=== PATIENT | male | born 1945 | race Caucasian/White ===

== ENCOUNTER 2016-11-06 11:56 | Inpatient (IN) | payer MEDICARE, OTHER ==
--- NOTE | 2016-11-06 12:23 | EDPRACDOC ---
- General Information Information Source: Patient - History of Present Illness Onset: one week HPI: LEFT LEG SWELLING, 2 WEEKS DURATION, WORSE YESTERDAY AND TODAY. HAS SAT IN RECLINER WITH LEG ELEVATED. STARTED WITH CRAMPS, (NOT UNUSUAL), SWELLING INITIALLY STARTED FROM KNEE DOWN, BUT NOW EXTENDS TO HIP. 2012 AORTIC VALVE (NON -METALLIC). TAKES PLAVIX AND 81 MG ASPIRIN. Mechanism: Denies: Blunt Trauma <Asaf Hammond - Last Filed: 11/06/16 16:34> <Meera Chavez - Last Filed: 11/06/16 18:45> - General Information Chief Complaint: Lower Leg Pain Stated Complaint: LT LEG SWOLLEN FROM TOE TO GROIN PALE Time Seen by Provider: 11/06/16 12:10 Home Medications: Home Medications Albuterol Sulfate [Proair Hfa] 1 - 2 puff INH Q4-6H PRN 11/06/16 Amitriptyline HCl 25 mg PO QHS PRN 11/06/16 Aspirin (Enteric Coated) [Ecotrin] 81 mg PO DAILY 11/06/16 Clopidogrel Bisulfate [Plavix] 75 mg PO DAILY 11/06/16 Fenofibrate 160 mg PO DAILY 11/06/16 Furosemide [Lasix] 20 mg PO DAILY 11/06/16 Insulin Regular, Human [Humulin R] 8 unit SQ .TID SLIDING SCALE 11/06/16 Insulin Regular, Human [Humulin R] 8 unit SQ 2000 PRN 11/06/16 Liraglutide [Victoza 0.6 mg/0.1 ml] 1.8 mg SQ .QPM 11/06/16 Losartan Potassium 50 mg PO DAILY 11/06/16 [place]-3/Dha/Epa/Fish Oil [Fish Oil 1,400 mg Softgel] 1 cap PO BID 11/06/16 Pravastatin [Pravachol] 80 mg PO QHS 11/06/16 Promethazine [Phenergan] 25 mg PO Q8H PRN 11/06/16 Super Beta Prostate 2 tab PO .QPM 11/06/16 Verapamil HCl [Verapamil ER] 120 mg PO DAILY 11/06/16 Allergies/Adverse Reactions: Allergies Allergy/AdvReac Type Severity Reaction Status Date / Time levofloxacin [From Levaquin] Allergy Nausea/Vomi Verified 11/06/16 12:01 ting ED Past Medical History - History Reviewed Yes Nurses notes reviewed and agree except as marked - Patient Medical History Cardiac History: Reports: Hypertension, Hypercholesterolemia Respiratory History: Reports: COPD Psychological History: Denies: Depression Surgical History: Reports: Appendectomy, Tonsillectomy/Adnoidectomy - Social Medical History Smoking Status: Heavy tobacco smoker (5 or more cigarettes/day or daily pipe/ cigar) <Asaf Hammond - Last Filed: 11/06/16 16:34> EDM Review of Systems - Review of Systems ROS Negative Except as Marked: Yes All systems reviewed and were negative except as marked Respiratory: Shortness of Breath (CHRONIC, NO CHANGE FROM PRIOR.) Cardiovascular: No Symptoms Reported Gastrointestinal: No Symptoms Reported Genitourinary: No Symptoms Reported <Asaf Hammond - Last Filed: 11/06/16 16:34> - Physical Exam Constitutional: Alert (Awake), No apparent distress Oriented to: Time, Person, Place Last recorded Vital Signs: Last Vital Signs Temp 97.8 F 11/06/16 12:01 Pulse 114 11/06/16 12:01 Resp 20 11/06/16 12:01 BP 134/61 11/06/16 12:01 Pulse Ox 98 11/06/16 12:01 Oxygen Pulse Oxygen Saturation 98 O2 Device Room Air Oxygen Flow Rate Fraction of Inspired Oxygen ( FIO2) - HEENT Head: Normal ( normocephalic) Eye Exam: Normal (PERRL, EOMI, Sclera white) Oropharynx: Membranes Dry, Other (ERYTHEMA SOFT PALATE) Nose: No Symptoms Reported (septum midline) Neck: Normal (FROM, trachea at midline) - Respiratory/Cardiovascular Respiratory: Normal - CTA (BBS clear to auscultation without adventitious sounds ) Cardiovascular: Normal (RRR without murmur, gallop or rub) - GI Auscultation: Normal (NABS) Palpation: Normal (Soft,No rebound or guarding, non distended) Tenderness: Non tender Perez's Sign: Negative - Musculoskeletal Back: Normal (Non-Tender) Extremities: Normal (Normal tone, Pulses 2+ No cyanosis or edema, FROM) - Integumentary Skin: Normal, Warm, Dry Lymphatics: Normal (no adenopathy) - Neurologic Memory Impaired: Normal Motor Function: Normal (Normal tone, Pulses 2+ No cyanosis or edema, FROM) Cranial Nerve: Normal (CN II-X11 intact sensation, strength 5/5) Cerebellar: Normal Mood Description: Normal Perception: Normal <Asaf aHmmond - Last Filed: 11/06/16 16:34> - Physical Exam Last recorded Vital Signs: Last Vital Signs Temp 97.8 F 11/06/16 12:01 Pulse 90 11/06/16 17:36 Resp 18 11/06/16 17:36 BP 131/59 L 11/06/16 17:36 Pulse Ox 96 11/06/16 17:36 Oxygen Pulse Oxygen Saturation 96 O2 Device Room Air Oxygen Flow Rate Fraction of Inspired Oxygen ( FIO2) <Meera Chavez Jolie - Last Filed: 11/06/16 18:45> ED Low Extremities Phys Exam - Other Exam Other Exam Findings: LEFT LEG PITTING EDEMA FROM FOOT TO THIGH. TTP LEFT ANTERIOR THIGH. <Asaf Hammond - Last Filed: 11/06/16 16:34> - Results 11/06/16 12:41 11/06/16 12:41 - EKG EKG #1 EKG Time: 12:48 -: Yes EKG interpreted by me Rate: bpm: 97 [place]: Normal Rhythm: NSR Block: None Hypertrophy: None ST: Normal Comments: NORMAL EKG <Asaf Hammond - Last Filed: 11/06/16 16:34> - Re-evaluation Re-evaluation 3 Re-evaluation Time: 18:43 LEFT LOWER EXTREMITY STILL WARM, WELL PERFUSED, DORSALIS PEDIS 2+. CAP REFILL IN ALL 5 TOES BRISK. SKIN IS WARM AND PINK NORMAL. NO EVIDENCE OF CERULEANS DOLOR OR ALBA. - Results 11/06/16 12:41 11/06/16 12:41 WBC 13.8 xk/uL (3.8-10.8) H 11/06/16 12:41 RBC 3.96 xM/uL (4.70-6.10) L 11/06/16 12:41 Hgb 10.2 g/dL (14.0-18.0) L 11/06/16 12:41 Hct 31.9 % (42-52) L 11/06/16 12:41 MCV 81 fL (80-94) 11/06/16 12:41 MCH 25.9 pg (27-32) L 11/06/16 12:41 MCHC 32.1 g/dl (33-36) L 11/06/16 12:41 RDW 16.2 % (11.5-14.5) H 11/06/16 12:41 Plt Count 192 xk/uL (130-400) 11/06/16 12:41 MPV 7.6 fL (7.4-10.4) 11/06/16 12:41 Neut % (Auto) 70.0 % (45-76) 11/06/16 12:41 Lymph % (Auto) 19.1 % (17-44) 11/06/16 12:41 [place] % (Auto) 6.1 % (3-10) 11/06/16 12:41 Eos % (Auto) 3.8 % (0-5) 11/06/16 12:41 Baso % (Auto) 1.0 % (0-2) 11/06/16 12:41 Absolute Neuts (auto) 9.66 xk/uL (1.7-8.2) H 11/06/16 12:41 Absolute Lymphs (auto) 2.62 xk/uL (0.65-4.75) 11/06/16 12:41 PT 13.8 SEC (9.2-11.2) H 11/06/16 12:41 INR 1.3 11/06/16 12:41 APTT 24.9 SEC (22-35) 11/06/16 12:41 Sodium 136 mEq/L (137-146) L 11/06/16 12:41 Potassium 4.2 mEq/L (3.5-5.1) 11/06/16 12:41 Chloride 102 mEq/L (98-107) 11/06/16 12:41 Carbon Dioxide 24 mMOL/L (22-33) 11/06/16 12:41 Anion Gap 14 mEq/L (8-16) 11/06/16 12:41 BUN 49 MG/DL (9-20) H 11/06/16 12:41 Creatinine 2.00 MG/DL (0.66-1.25) H 11/06/16 12:41 Estimated GFR (MDRD) 33 mL/min (>=60) L 11/06/16 12:41 Glucose 189 mg/dL (70-99) H 11/06/16 12:41 Calculated Osmolality 280 MOs/Kg (270-290) 11/06/16 12:41 Calcium 8.7 MG/DL (8.4-10.2) 11/06/16 12:41 Corrected Calcium 9.6 MG/DL (8.4-10.2) 11/06/16 12:41 Total Bilirubin 0.9 MG/DL (0.2-1.3) 11/06/16 12:41 AST 42 IU/L (17-59) 11/06/16 12:41 ALT 22 IU/L (21-72) 11/06/16 12:41 Alkaline Phosphatase 71 IU/L (50-160) 11/06/16 12:41 Troponin I 0.08 ng/mL (<.04) 11/06/16 12:41 Lqd-S-Dnoomwtcprt Pept Cancelled 11/06/16 12:41 Total Protein 7.1 G/DL (6.3-8.2) 11/06/16 12:41 Albumin 3.1 G/DL (3.5-5.0) L 11/06/16 12:41 Lab Results 11/06/16 11/06/16 11/06/16 12:41 12:41 12:41 WBC 13.8 H RBC 3.96 L Hgb 10.2 L Hct 31.9 L MCV 81 MCH 25.9 L MCHC 32.1 L RDW 16.2 H Plt Count 192 MPV 7.6 Neut % (Auto) 70.0 Lymph % (Auto) 19.1 [place] % (Auto) 6.1 Eos % (Auto) 3.8 Baso % (Auto) 1.0 Absolute Neuts (auto) 9.66 H Absolute Lymphs (auto) 2.62 PT 13.8 H INR 1.3 APTT 24.9 Sodium Potassium Chloride Carbon Dioxide Anion Gap BUN Creatinine Estimated GFR (MDRD) Glucose Calculated Osmolality Calcium Corrected Calcium Total Bilirubin AST ALT Alkaline Phosphatase Troponin I Wos-T-Apoaavkrufa Pept Cancelled Total Protein Albumin 11/06/16 12:41 WBC RBC Hgb Hct MCV MCH MCHC RDW Plt Count MPV Neut % (Auto) Lymph % (Auto) [place] % (Auto) Eos % (Auto) Baso % (Auto) Absolute Neuts (auto) Absolute Lymphs (auto) PT INR APTT Sodium 136 L Potassium 4.2 Chloride 102 Carbon Dioxide 24 Anion Gap 14 BUN 49 H Creatinine 2.00 H Estimated GFR (MDRD) 33 L Glucose 189 H Calculated Osmolality 280 Calcium 8.7 Corrected Calcium 9.6 Total Bilirubin 0.9 AST 42 ALT 22 Alkaline Phosphatase 71 Troponin I 0.08 Els-G-Iwldkmdfsil Pept Total Protein 7.1 Albumin 3.1 L - Additional Information WITH ELEVATED TROPONINS AND A VERY LARGE CLOT BURDEN IN THE LEFT LOWER EXTREMITY DVT,, A PULMONARY EMBOLISM CAN BE ASSUMED. HOWEVER WITH NORMAL VITAL SIGNS, NORMAL OXYGENATION, NO CHEST PAIN NO SHORTNESS OF BREATH, NORMAL ECHO THEN A LARGE CLOT BURDEN IN THE LUNG IS HIGHLY UNLIKELY. <Meera Chavez - Last Filed: 11/06/16 18:45> - Departure Yes I personally saw and evaluated the patient. Disposition: Home <Asaf Hammond - Last Filed: 11/06/16 16:34> - Departure Disposition: Admit IP To This Hospital Education/Counseling Given To: Patient, Family Member Education/Counseling Given Regarding: Diagnosis, Treatment, Prognosis Decision to Admit Time: 18:41 Decision to admit date: 11/06/16 Decision to admit: from ED - Physician Consulted Hospitalist Time Called: 18:00 Provider Called: Bear Del Castillo Time [employer] Returned Call: 18:03 (D/W VASC SURG IF AMENABLE TO THROMBOLYSISI.) Surgery Time Called: 18:20 Provider Called: Lg Kinney Time [employer] Returned Call: 18:41 (NOT A CANDIDATE FOR IV THROMBOLYTICS B/C RENAL INSUF: CONVENTIONAL TREATMENT ONLY) <Meera Chavez - Last Filed: 11/06/16 18:45> - Departure Condition: Stable Final Diagnosis: Left leg DVT Qualifiers: Affected thrombotic vein of extremity: femoral Chronicity: acute Qualified Code (s): I82.412 - Acute embolism and thrombosis of left femoral vein Pulmonary embolism Qualifiers: Pulmonary embolism type: other Chronicity: unspecified Acute cor pulmonale presence: without acute cor pulmonale Qualified Code(s): I26.99 - Other pulmonary embolism without acute cor pulmonale Referrals: Eugene Apodaca MD [Primary Care Provider] - One Week Prescriptions: No Action Super Beta Prostate 2 tab PO .QPM Losartan Potassium 50 mg PO DAILY Insulin Regular, Human [Humulin R] 8 unit SQ .TID SLIDING SCALE Aspirin (Enteric Coated) [Ecotrin] 81 mg PO DAILY [place]-3/Dha/Epa/Fish Oil [Fish Oil 1,400 mg Softgel] 1 cap PO BID Clopidogrel Bisulfate [Plavix] 75 mg PO DAILY Pravastatin [Pravachol] 80 mg PO QHS Furosemide [Lasix] 20 mg PO DAILY Verapamil HCl [Verapamil ER] 120 mg PO DAILY Liraglutide [Victoza 0.6 mg/0.1 ml] 1.8 mg SQ .QPM Fenofibrate 160 mg PO DAILY Albuterol Sulfate [Proair Hfa] 1 - 2 puff INH Q4-6H PRN PRN Reason: Shortness Of Breath Promethazine [Phenergan] 25 mg PO Q8H PRN PRN Reason: Nausea/Vomiting Amitriptyline HCl 25 mg PO QHS PRN PRN Reason: NEUROPATHY Insulin Regular, Human [Humulin R] 8 unit SQ 2000 PRN PRN Reason: BS>300
[2016-11-06 12:51] LABS: AUTOMATED EOSINOPHIL 3.8 % (0-5); AUTOMATED LYMPH 19.1 % (17-44); AUTOMATED MONOCYTE 6.1 % (3-10); MPV 7.6 fL (7.4-10.4)
[2016-11-06 13:02] LABS: BLOOD UREA NITROGEN 49 MG/DL (9-20); CALC CORRECTED 9.6 MG/DL (8.4-10.2); CALCIUM 8.7 MG/DL (8.4-10.2); CALCULATED OSMOLALITY 280 MOs/Kg (270-290); CHLORIDE 102 mEq/L (98-107); GLUCOSE 189 mg/dL (70-99); SODIUM LEVEL 136 mEq/L (137-146); TOTAL PROTEIN 7.1 G/DL (6.3-8.2)
[2016-11-06 13:05] LABS: PARTIAL THROMB. TIME 24.9 SEC (22-35); PT-INR 1.3
--- NOTE | 2016-11-06 13:33 | DIRPT ---
CLINICAL DATA: Leg swelling EXAM: PORTABLE CHEST 1 VIEW COMPARISON: 12/05/2012 FINDINGS: Previous median sternotomy and CABG procedure. Mile diffuse edema identified. Masslike opacity in the perihilar left midlung is identified and measures 8.5 cm. Right lung appears clear. IMPRESSION: 1. Perihilar masslike opacity in the left lung is identified. In the acute setting findings may represent pneumonia. If there are no signs or symptoms of infection then further evaluation with contrast enhanced CT of the chest would be advised to assess for underlying malignancy. Electronically Signed By: Susy Mckeon M.D. On: 11/06/2016 13:31
--- NOTE | 2016-11-06 16:12 | DIRPT ---
CLINICAL DATA: Left lower extremity edema for 2 weeks with associated pain. EXAM: LEFT LOWER EXTREMITY VENOUS DOPPLER ULTRASOUND TECHNIQUE: Hector-scale sonography with graded compression, as well as color Doppler and duplex ultrasound were performed to evaluate the lower extremity deep venous systems from the level of the common femoral vein and including the common femoral, femoral, profunda femoral, popliteal and calf veins including the posterior tibial, peroneal and gastrocnemius veins when visible. The superficial great saphenous vein was also interrogated. Spectral Doppler was utilized to evaluate flow at rest and with distal augmentation maneuvers in the common femoral, femoral and popliteal veins. COMPARISON: None. FINDINGS: Contralateral Common Femoral Vein: Respiratory phasicity is normal and symmetric with the symptomatic side. No evidence of thrombus. Normal compressibility. Common Femoral Vein: Occlusive thrombus present. Saphenofemoral Junction: There is flow in the GSV right up to the saphenofemoral junction. Profunda Femoral Vein: Occlusive thrombus present. Femoral Vein: Occlusive thrombus present. Popliteal Vein: Occlusive thrombus present. Calf Veins: Occlusive thrombus present. Superficial Great Saphenous Vein: No evidence of thrombus. Normal compressibility and flow on color Doppler imaging. Venous Reflux: None. Other Findings: No focal fluid collections. IMPRESSION: Extensive acute appearing left lower extremity DVT affecting all of the visualized deep veins with occlusive thrombus seen throughout. The great saphenous vein remains patent up to the level of the saphenofemoral junction. Electronically Signed By: Angus Guadalupe M.D. On: 11/06/2016 16:09
[2016-11-06] MEDS ORDERED: HEPARIN 5000 UNITS/ML VIAL IV ONE (16:34)
[2016-11-06] MEDS: HEPARIN 500 ML IV SCH (17:34)
--- NOTE | 2016-11-06 18:00 | CAPUECHO ---
INDICATION: SHORTNESS OF BREATH HEIGHT: 180.3 cm (5 ft 11.0 in) WEIGHT: 94.8 kg (209.0 lbs) BP: 122/58 BSA: 2.074772 m MEASUREMENTS 2D RVIDd: 2.9 cm IVSd: 1.5 cm LVIDd: 3.7 cm LVPWd: 1.5 cm LVIDs: 2.6 cm EF(Teich): 59.91 % LA Diam: 4.0 cm LAESV MOD A4C: 36.3 ml LAESV MOD A2C: 58.0 ml LAESV Index (A-L): 24.28 ml/m M-MODE Ao Diam: 3.6 cm DOPPLER MV E Jesus: 0.74 m/s MV A Jesus: 1.20 m/s MV PHT: 54.26 ms MVA By PHT: 4.05 cm LVOT Vmax: 0.88 m/s AV Vmax: 1.47 m/s TR Vmax: 0.83 m/s TR maxP mmHg RVSP: 12.73 mmHg FINDINGS ------- Procedure:2D images, m-mode, color and spectral Doppler were obtained and reviewed. ECG rhythm:Sinus rhythm. Study quality:This was a technically difficult study with suboptimal views. Left Ventricle:The left ventricular size is normal. There is mild concentric left ventricular hype rtrophy. Overall left ventricular systolic function is normal with, an EF between 55 - 60 %. The diastolic filling pattern indicates impaired relaxation. No regional wall motion abnormalities we re noted. Right Ventricle:The right ventricle is normal in size and function. Left Atrium:Left atrium is mildly dilated by volume. Right Atrium:The right atrium is mildly enlarged. Septum intact by color Doppler. Aortic Valve:The aortic valve was not well visualized. There is no evidence of aortic regurgitatio n. There is no evidence of aortic stenosis. Mitral Valve:Normal appearing mitral valve. No mitral regurgitation. Tricuspid Valve:The tricuspid valve appears structurally normal. Trace tricuspid regurgitation pre sent. Normal pulm artery pressure suggested. Pulmonic Valve:The pulmonic valve is normal. There is no pulmonic regurgitation present. Aorta:The aortic root and aortic arch appear normal. IVC:Normal inferior vena cava with normal inspiratory collapse. Pericardium:There is no pericardial effusion. CONCLUSIONS 1. mild concentric left ventricular hypertrophy with normal systolic function, EF 59%, no segmental abnormality. 2. mild biatrial dilatation 3. normal right ventricular size/function, trace TR , normal pulm artery pressure suggested 4. mild aortic sclerosis, no significant valve disease Electronically Signed By: Abran Felipe MD-- Electronically Signed On: 17:58:03
--- NOTE | 2016-11-06 18:43 | HISTPHYS ---
- Chief Complaint leg pain - History of Present Illness PRIMARY CARE PROVIDER: Dr. Apodaca HPI: The patient is a 71 yo man, smoker, with COPD (uses only ProAir qhs) who presents with leg pain and shortness of breath. His foot left started swelling about 2.5 weeks ago and eventually his lower leg then his thigh started swelling. The thigh swelling started about 2 days ago. The shortness of breath - - started 10 years ago, and has been somewhat worse lately. Onset: 2.5 weeks ago. Duration: intermittent. Location: left foot. Radiation: left lower leg then left thigh Character: swelling, pain. Alleviated by: Nothing. Exacerbated by: walking. Associated Symptoms: Shortness of breath. Chronic cough and wheezing. No chest pain or palpitations. Weight loss: approximately 20 lbs over the last year, but more than 40 lbs within the last 4 years; unintentional. Treatments: none at home except usual medications. ProAir takes only 1 time per day. Other History: CON: Uses CPAP at home but it does not fit well because he lost weight. - Medical History Cardiac History: Reports: Hypertension, Hypercholesterolemia, Valvular Heart Disease (Heart valve aorta [facility], [facility] Respiratory History: Reports: COPD (and CON, has CPAP but mask doesn't fit.) GI/ History: Reports: Renal Disease (CKD Starge III.) Musculoskeletal History: Reports: Arthritis Systemic History: Reports: Diabetes (Type 2, on insulin) Psychological History: Denies: Depression Other History: Colonoscopy: [place], 2005, No issues per patient. No EGD. CON: Uses CPAP at home but it does not fit well because he lost weight. - Surgical History Reports: Appendectomy, Tonsillectomy/Adnoidectomy, Other (Aortic valve replacement, hemorrhoids 1979, Abscess removed buttocks) - Medictions/Allergies Allergies levofloxacin [From Levaquin] Allergy (Verified 11/06/16 12:01) Nausea/Vomiting Current Medication List: Reviewed Home Medications Albuterol Sulfate [Proair Hfa] 1 - 2 puff INH Q4-6H PRN 11/06/16 Amitriptyline HCl 25 mg PO QHS PRN 11/06/16 Aspirin (Enteric Coated) [Ecotrin] 81 mg PO DAILY 11/06/16 Clopidogrel Bisulfate [Plavix] 75 mg PO DAILY 11/06/16 Fenofibrate 160 mg PO DAILY 11/06/16 Furosemide [Lasix] 20 mg PO DAILY 11/06/16 Insulin Regular, Human [Humulin R] 8 unit SQ .TID SLIDING SCALE 11/06/16 Insulin Regular, Human [Humulin R] 8 unit SQ 2000 PRN 11/06/16 Liraglutide [Victoza 0.6 mg/0.1 ml] 1.8 mg SQ .QPM 11/06/16 Losartan Potassium 50 mg PO DAILY 11/06/16 [place]-3/Dha/Epa/Fish Oil [Fish Oil 1,400 mg Softgel] 1 cap PO BID 11/06/16 Pravastatin [Pravachol] 80 mg PO QHS 11/06/16 Promethazine [Phenergan] 25 mg PO Q8H PRN 11/06/16 Super Beta Prostate 2 tab PO .QPM 11/06/16 Verapamil HCl [Verapamil ER] 120 mg PO DAILY 11/06/16 - Family History Reports: Diabetes (Brother), Cancer (Father: prostate.), Cardiac Disorders ( Mother, but lived to 89yo.), Other (Brother: glaucoma. DVT IN 1 LEG.) - Social History Lives: with Spouse Smoking Status: Heavy tobacco smoker (5 or more cigarettes/day or daily pipe/ cigar) (Currently 1-2 ppd. Previously 3ppd within 8 hrs, then more. Started age 11.) Social History: Denies: Alcohol Use, Substance Use Disorder - Review of Systems GENERAL: No Fever, chills, or diaphoresis. Positive for fatigue/malaise. Unintentional weight loss. HEENT: No ear pain or discharge. No nasal discharge or bleeding. No throat pain or swelling. No eye pain or eye redness. RESPIRATORY: Cough, wheezing, and shortness of breath. CARDIOVASCULAR: No chest pain or palpitations. GI: No abdominal pain, nausea, vomiting, diarrhea, constipation, or bloody stool. NEUROLOGICAL: No headache or focal weakness. INTEGUMENT: no rashes, itching, or lesions. LYMPHATIC SYSTEM: no lymph node swelling or pain. MUSCULOSKELETAL: Except as per HPI, no new pain or joint swelling. GENITOURINARY: No dysuria or hematuria. ENDOCRINE: No polyuria or polydipsia. HEME: No chronic anemia, bleeding, or easy bruising. - Physical Exam Vital Signs: Initial Vitals Temperature 97.8 F 11/06/16 12:01 Pulse Rate 114 11/06/16 12:01 Respiratory Rate 20 11/06/16 12:01 Blood Pressure 134/61 11/06/16 12:01 Pulse Oxygen Saturation 98 11/06/16 12:01 Vital Signs - 24 hr 11/06/16 11/06/16 11/06/16 12:01 14:43 17:36 Temperature 97.8 F Pulse Rate 114 91 90 Respiratory 20 18 18 Rate Blood Pressure 134/61 122/58 L 131/59 L Pulse Oxygen 98 98 96 Saturation Weight: 94.8 kg Height: 5 feet 11 inches BMI: 29.1 - Other Exam Other Exam Findings: GENERAL: Ill-appearing, well nourished, in acute distress. HEENT: Normocephalic, atraumatic; pupils equal and round. Nares patent, without discharge or bleeding. No oropharyngeal lesions or erythema. Mucous membranes are dry. NECK: is supple, no masses, trachea midline. RESPIRATORY: Clear to auscultation bilaterally. Chest wall movements are symmetric. No use of accessory muscles to breathe. Decreased breath sounds. Scattered wheezing. Coarse breath sounds on left. No rales. CARDIOVASCULAR: Normal S1, S2. Murmur 3/6 systolic. No rubs, or gallops. PMI non -displaced. Carotids: no carotid bruits. No bradycardia or tachycardia. DP pulses 2+ bilaterally. GI: soft, nontender, non-distended, normal active bowel sounds. No hepatosplenomegaly. INTEGUMENT: Clean, dry, and intact. Mild erythema of left lower extremity. MUSCULOSKELETAL: Moving all extremities. No cyanosis. Clubbing. Edema: Edema 1+ pitting on left foot, left lower leg, and left thigh. No edema on right. Posterior left thigh and left calf and left posterior popliteal areas all tender to palpation. NEUROLOGICAL: Cranial nerves 2-12 grossly intact. Motor 5/5 throughout, except left lower extremity 4/5 (exam limited by patient's pain). Reflexes: 2+ bilaterally. Babinski: toes downgoing bilaterally. Intact Finger to nose. Sensory grossly intact to light touch. Intact rapid alternating movements bilaterally. No pronator drift. PSYCHIATRIC: Fully oriented. Normal and appropriate affect. LYMPHATIC: Cervical lymphadenopathy: left anterior cervical chain and submandibular; shotty posterior cervical chain lymphadenopathy. No supraclavicular lymphadenopathy. - Lab Results Laboratory Results - last 24 hr 11/06/16 11/06/16 11/06/16 12:41 12:41 12:41 WBC 13.8 H RBC 3.96 L Hgb 10.2 L Hct 31.9 L MCV 81 MCH 25.9 L MCHC 32.1 L RDW 16.2 H Plt Count 192 MPV 7.6 Neut % (Auto) 70.0 Lymph % (Auto) 19.1 [place] % (Auto) 6.1 Eos % (Auto) 3.8 Baso % (Auto) 1.0 Absolute Neuts (auto) 9.66 H Absolute Lymphs (auto) 2.62 PT 13.8 H INR 1.3 APTT 24.9 Sodium 136 L Potassium 4.2 Chloride 102 Carbon Dioxide 24 Anion Gap 14 BUN 49 H Creatinine 2.00 H Estimated GFR (MDRD) 33 L Glucose 189 H Calculated Osmolality 280 Calcium 8.7 Corrected Calcium 9.6 Total Bilirubin 0.9 AST 42 ALT 22 Alkaline Phosphatase 71 Troponin I 0.08 Lqi-Y-Ddatddbkxhy Pept Total Protein 7.1 Albumin 3.1 L 11/06/16 12:41 WBC RBC Hgb Hct MCV MCH MCHC RDW Plt Count MPV Neut % (Auto) Lymph % (Auto) [place] % (Auto) Eos % (Auto) Baso % (Auto) Absolute Neuts (auto) Absolute Lymphs (auto) PT INR APTT Sodium Potassium Chloride Carbon Dioxide Anion Gap BUN Creatinine Estimated GFR (MDRD) Glucose Calculated Osmolality Calcium Corrected Calcium Total Bilirubin AST ALT Alkaline Phosphatase Troponin I Sqc-S-Gqdhurvsjal Pept Cancelled Total Protein Albumin - Diagnostic Findings EK bpm. Normal sinus rhythm. Reviewed EKG personally. IMAGING AND PROCEDURES: Chest x-ray, viewed personally: CLINICAL DATA: Leg swelling EXAM: PORTABLE CHEST 1 VIEW COMPARISON: 12/05/2012 FINDINGS: Previous median sternotomy and CABG procedure. Mile diffuse edema identified. Masslike opacity in the perihilar left midlung is identified and measures 8.5 cm. Right lung appears clear. IMPRESSION: 1. Perihilar masslike opacity in the left lung is identified. In the acute setting findings may represent pneumonia. If there are no signs or symptoms of infection then further evaluation with contrast enhanced CT of the chest would be advised to assess for underlying malignancy. US left lower extremity: EXAM: LEFT LOWER EXTREMITY VENOUS DOPPLER ULTRASOUND TECHNIQUE: Hector-scale sonography with graded compression, as well as color Doppler and duplex ultrasound were performed to evaluate the lower extremity deep venous systems from the level of the common femoral vein and including the common femoral, femoral, profunda femoral, popliteal and calf veins including the posterior tibial, peroneal and gastrocnemius veins when visible. The superficial great saphenous vein was also interrogated. Spectral Doppler was utilized to evaluate flow at rest and with distal augmentation maneuvers in the common femoral, femoral and popliteal veins. COMPARISON: None. FINDINGS: Contralateral Common Femoral Vein: Respiratory phasicity is normal and symmetric with the symptomatic side. No evidence of thrombus. Normal compressibility. Common Femoral Vein: Occlusive thrombus present. Saphenofemoral Junction: There is flow in the GSV right up to the saphenofemoral junction. Profunda Femoral Vein: Occlusive thrombus present. Femoral Vein: Occlusive thrombus present. Popliteal Vein: Occlusive thrombus present. Calf Veins: Occlusive thrombus present. Superficial Great Saphenous Vein: No evidence of thrombus. Normal compressibility and flow on color Doppler imaging. Venous Reflux: None. Other Findings: No focal fluid collections. IMPRESSION: Extensive acute appearing left lower extremity DVT affecting all of the visualized deep veins with occlusive thrombus seen throughout. The great saphenous vein remains patent up to the level of the saphenofemoral junction. ECHOCARDIOGRAM 11/06/16: FINDINGS ------- Procedure:2D images, m-mode, color and spectral Doppler were obtained and reviewed. ECG rhythm:Sinus rhythm. Study quality:This was a technically difficult study with suboptimal views. Left Ventricle:The left ventricular size is normal. There is mild concentric left ventricular hypertrophy. Overall left ventricular systolic function is normal with, an EF between 55 - 60 %. The diastolic filling pattern indicates impaired relaxation. No regional wall motion abnormalities were noted. Right Ventricle:The right ventricle is normal in size and function. Left Atrium:Left atrium is mildly dilated by volume. Right Atrium:The right atrium is mildly enlarged. Septum intact by color Doppler. Aortic Valve:The aortic valve was not well visualized. There is no evidence of aortic regurgitation. There is no evidence of aortic stenosis. Mitral Valve:Normal appearing mitral valve. No mitral regurgitation. Tricuspid Valve:The tricuspid valve appears structurally normal. Trace tricuspid regurgitation present. Normal pulm artery pressure suggested. Pulmonic Valve:The pulmonic valve is normal. There is no pulmonic regurgitation present. Aorta:The aortic root and aortic arch appear normal. IVC:Normal inferior vena cava with normal inspiratory collapse. Pericardium:There is no pericardial effusion. CONCLUSIONS 1. mild concentric left ventricular hypertrophy with normal systolic function, EF 59%, no segmental abnormality. 2. mild biatrial dilatation 3. normal right ventricular size/function, trace TR, normal pulm artery pressure suggested 4. mild aortic sclerosis, no significant valve disease. UPDATE: CT Chest without contrast: EXAM: CT CHEST WITHOUT CONTRAST TECHNIQUE: Multidetector CT imaging of the chest was performed following the standard protocol without IV contrast. COMPARISON: None. FINDINGS: Mediastinum/Lymph Nodes: Multifocal adenopathy. Left lung mass contiguous with the left hilum with ill-defined soft tissue density encasing the left upper lobar bronchus. AP window adenopathy, largest node measures 2.3 x 2.1 cm. Prevascular lymph node measures 2.6 x 2.5 cm. Additional enlarged mediastinal lymph nodes at multiple stations. Right infrahilar soft tissue fullness, suspicious for contralateral hilar lymph node, however lack of intravenous contrast limits assessment. Post median sternotomy with prosthetic aortic valve. Heart is normal in size. Coronary artery calcifications are seen. Tortuous thoracic aorta with atherosclerosis. No pericardial effusion or pericardial thickening. Lungs/Pleura: Large left upper lobe lung mass in the perihilar region. This is dumbbell/bilobed in morphology with medial component measuring 5.0 x 3.7 cm, lateral component measuring 4.6 x 5.0 cm. (Maximal dimension of 8.6 cm). Surrounding spiculation with small satellite nodules. Central aspect is contiguous with the left hilum where there is likely encasement of the left upper lobe bronchus with circumferential soft tissue density. There is a 4 mm right upper lobe nodule (image 30/67). Additional right upper lobe 4 mm subpleural nodule same image more lateral. 7 mm subpleural right middle lobe nodule (image 44/67). Additional small nodules throughout the right middle lobe. Advanced emphysema, apical predominant. No pleural effusion. Upper abdomen: Bilateral retrocrural adenopathy, 1.2 cm on the right than 1.0 cm on the left. There is upper retroperitoneal adenopathy partially included. Sub sentinel nodularity of the lateral limb of the right adrenal gland. No discrete left adrenal nodule, however mild adrenal thickening. Questionable subcapsular hypodense lesion in the right lobe of the liver with equivocal capsular retraction, incompletely characterized without contrast. Musculoskeletal: No evidence of osseous metastatic disease. Patient is post median sternotomy. IMPRESSION: 1. Large left upper lobe lung mass consistent with primary bronchogenic malignancy. This is bilobed in appearance, with greatest dimension of 8.6 cm. There are adjacent satellite nodules. Multifocal mediastinal adenopathy. Left hilar soft tissue density contiguous with lung mass, difficult to define discrete adenopathy. Question of right infrahilar adenopathy, suboptimally assessed given lack of intravenous contrast. Multiple small nodules in the right lung ranging up to 7 mm. 2. Upper abdominal adenopathy in the retrocrural and retroperitoneal stations. This is partially included. 3. Question of hepatic metastasis, incompletely characterized. Minimal subcentimeter nodularity of the right adrenal glands. 4. Advanced emphysema. Advanced atherosclerosis. - Assessment (1) Left leg DVT I82.402 - ACUTE EMBOLISM AND THOMBOS UNSP DEEP VEINS OF L LOW EXTREM Acute Qualifiers: Affected thrombotic vein of extremity: femoral Chronicity: acute Qualified Code(s): I82.412 - Acute embolism and thrombosis of left femoral vein Severe DVT involving all deep veins of left leg, extending throughout the leg. Emergency department physician discussed case with the vascular surgeon avionics systems engineer at [facility], to determine if the patient had any other options besides standard therapy for his DVT. Surgeon noted that because of the patient's creatinine level, he would not be a candidate for any other interventions, and recommended standard therapy. Plan: IV heparin gtt. 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 Discussed case in detail with Dr. Chadwick , who also thinks the mass is most likely lung cancer. Liver partially imaged may have mets. Plan: Consult Dr. Chadwick. Will need scans of CT abdomen/pelvis for staging and bone scan. Could consider biopsy of lung or liver, depending on best approach. but for now , he needs to remain on a heparin IV gtt for anticoagulation. Family does not want interventional radiology to biopsy; family wants Dr. Florentino to biopsy. Niece is an OR tech at this hospital, and would like Dr. Florentino to evaluate the patient; she also inquired about whether he would benefit from an IVC filter. (3) COPD (chronic obstructive pulmonary disease) J44.9 - CHRONIC OBSTRUCTIVE PULMONARY DISEASE, UNSPECIFIED Acute Present on Admission: Yes Patient was unaware of the severity of his COPD, and only takes ProAir once a day. notes that patient has been very sedentary and thinks it is because he gets short of breath on exertion. Plan: Duonebs scheduled. PRN albuterol. Teaching regarding nebs and COPD diagnosis. Cultures. IV ceftriaxone and azithromycin. Will hold off on IV methylprednisolone for now, because his COPD could be at his baseline. (4) Acute kidney injury superimposed on chronic kidney disease N17.9 - ACUTE KIDNEY FAILURE, UNSPECIFIED; N18.9 - CHRONIC KIDNEY DISEASE, UNSPECIFIED Acute Present on Admission: Yes Baseline Cr 1.6. Admission Cr 2. GFR is 33. Plan: Trial of IVF for rehydration. (5) Abnormal CT scan, chest R93.8 - ABNORMAL FINDINGS ON DIAGNOSTIC IMAGING OF BODY STRUCTURES Acute Present on Admission: Yes Large left lung mass, lymphadenopathy, possible liver mets, and adrenal gland lesions. Plan: Will need CT abdomen/pelvis, but will hold off until patient is rehydrated to seei if his kidney function improves. Will need further follow up. (6) Anemia D64.9 - ANEMIA, UNSPECIFIED Acute Present on Admission: Yes Admission H/H prior to start of heparin IV gtt was 10.2/31.9. Etiology unknown. MCV 81. Plan: Monitor CBC. Check anmia labs. (7) Lower respiratory infection J22 - UNSPECIFIED ACUTE LOWER RESPIRATORY INFECTION Suspected Present on Admission: Clinically Unable to Determine Possible respiratory infection. Plan: Cultures. IV ceftriaxone and azithromycin. (8) Pulmonary embolism I26.99 - OTHER PULMONARY EMBOLISM WITHOUT ACUTE COR PULMONALE Suspected Qualifiers: Qualified Code(s): I26.99 - Other pulmonary embolism without acute cor pulmonale Patient with very large DVT in leg, and suspect he may also have a PE. Cannot obtain CTA chest because of his Creatinine level. May consider V/Q but with the abnormalities found on CT scan, unclear whether the V/Q would give reliable information. In any case, patient has been started on IV heparin gtt, which would also cover any PE. Plan: Continue IV heparin gtt. (9) Tobacco abuse Z72.0 - TOBACCO USE Acute Present on Admission: Yes Severe. Counseled to quit. (10) Obstructive sleep apnea G47.33 - OBSTRUCTIVE SLEEP APNEA (ADULT) (PEDIATRIC) Acute Present on Admission: Yes CPAP at night. Will need a new mask at home because home mask does not fit. (11) Type 2 diabetes mellitus with hyperglycemia E11.65 - TYPE 2 DIABETES MELLITUS WITH HYPERGLYCEMIA Acute Present on Admission: Yes Plan: Hold oral diabetes medications. Check fingerstick blood sugars q ac and hs. Sliding scale insulin. Ordered A1c and urine microalbumin. Case Care Discussed with: Patient, Consultants (Dr. Chadwick, Heme/Onc), Family, Nursing Staff Total Time: 70 min
[2016-11-06] MEDS ORDERED: CEFTRIAXONE 1 GM in D5W 100 ML IV ONE (20:00)
[2016-11-06] MEDS ORDERED: Medication Special Instructions SCH (20:00)
--- NOTE | 2016-11-06 20:28 | DIRPT ---
CLINICAL DATA: Further characterization of left lung mass seen on radiograph. EXAM: CT CHEST WITHOUT CONTRAST TECHNIQUE: Multidetector CT imaging of the chest was performed following the standard protocol without IV contrast. COMPARISON: None. FINDINGS: Mediastinum/Lymph Nodes: Multifocal adenopathy. Left lung mass contiguous with the left hilum with ill-defined soft tissue density encasing the left upper lobar bronchus. AP window adenopathy, largest node measures 2.3 x 2.1 cm. Prevascular lymph node measures 2.6 x 2.5 cm. Additional enlarged mediastinal lymph nodes at multiple stations. Right infrahilar soft tissue fullness, suspicious for contralateral hilar lymph node, however lack of intravenous contrast limits assessment. Post median sternotomy with prosthetic aortic valve. Heart is normal in size. Coronary artery calcifications are seen. Tortuous thoracic aorta with atherosclerosis. No pericardial effusion or pericardial thickening. Lungs/Pleura: Large left upper lobe lung mass in the perihilar region. This is dumbbell/bilobed in morphology with medial component measuring 5.0 x 3.7 cm, lateral component measuring 4.6 x 5.0 cm. (Maximal dimension of 8.6 cm). Surrounding spiculation with small satellite nodules. Central aspect is contiguous with the left hilum where there is likely encasement of the left upper lobe bronchus with circumferential soft tissue density. There is a 4 mm right upper lobe nodule (image 30/67). Additional right upper lobe 4 mm subpleural nodule same image more lateral. 7 mm subpleural right middle lobe nodule (image 44/67). Additional small nodules throughout the right middle lobe. Advanced emphysema, apical predominant. No pleural effusion. Upper abdomen: Bilateral retrocrural adenopathy, 1.2 cm on the right than 1.0 cm on the left. There is upper retroperitoneal adenopathy partially included. Sub sentinel nodularity of the lateral limb of the right adrenal gland. No discrete left adrenal nodule, however mild adrenal thickening. Questionable subcapsular hypodense lesion in the right lobe of the liver with equivocal capsular retraction, incompletely characterized without contrast. Musculoskeletal: No evidence of osseous metastatic disease. Patient is post median sternotomy. IMPRESSION: 1. Large left upper lobe lung mass consistent with primary bronchogenic malignancy. This is bilobed in appearance, with greatest dimension of 8.6 cm. There are adjacent satellite nodules. Multifocal mediastinal adenopathy. Left hilar soft tissue density contiguous with lung mass, difficult to define discrete adenopathy. Question of right infrahilar adenopathy, suboptimally assessed given lack of intravenous contrast. Multiple small nodules in the right lung ranging up to 7 mm. 2. Upper abdominal adenopathy in the retrocrural and retroperitoneal stations. This is partially included. 3. Question of hepatic metastasis, incompletely characterized. Minimal subcentimeter nodularity of the right adrenal glands. 4. Advanced emphysema. Advanced atherosclerosis. Electronically Signed By: Jess Davalos M.D. On: 11/06/2016 20:26
[2016-11-06] MEDS ORDERED: Vaccine Screening Complete SCH (21:00)
[2016-11-07 00:13] LABS: PARTIAL THROMB. TIME 39.8 SEC (22-35); PT-INR 1.3
[2016-11-07] MEDS ORDERED: AMITRIPTYLINE 25 MG TAB PO PRN (00:33)
[2016-11-07] MEDS ORDERED: TEMAZEPAM 15 MG CAP PO PRN (00:37)
[2016-11-07] MEDS ORDERED: SIMETHICONE 80 MG TAB PO PRN (00:37)
[2016-11-07] MEDS ORDERED: ACETAMINOPHEN 325 MG/TAB TABLET PO PRN (00:37)
[2016-11-07] MEDS ORDERED: GLUCAGON 1 MG VIAL SQ PRN ×2 (00:37→15:50)
[2016-11-07] MEDS ORDERED: DEXTROSE 25 GM/50 ML PFS IV PRN ×2 (00:37→15:50)
[2016-11-07] MEDS ORDERED: ACETAMINOPHEN 325 MG SUPP PR PRN (00:37)
[2016-11-07] MEDS ORDERED: BISACODYL 5 MG TAB PO PRN (00:37)
[2016-11-07] MEDS ORDERED: ALBUTEROL 0.083% 3 ML NEB NEB PRN (00:37)
[2016-11-07] MEDS ORDERED: PROMETHAZINE 25 MG/ML VIAL IV PRN (00:37)
[2016-11-07] MEDS ORDERED: GUAIFEN 100 MG-DEXTROMETH 10 MG PER 5 ML PO PRN (00:37)
[2016-11-07] MEDS ORDERED: GLUCOSE (ORAL GEL) 15 GM TUBE PO PRN ×2 (00:37→15:50)
[2016-11-07] MEDS ORDERED: ONDANSETRON HCL 4 MG/2 ML VIAL IV PRN (00:37)
[2016-11-07] MEDS ORDERED: SENNA CONCENTRATE TAB PO PRN (00:37)
[2016-11-07] MEDS ORDERED: Docusate Sodium 100 MG CAP PO PRN (00:37)
[2016-11-07] MEDS ORDERED: BENZONATATE 100 MG PERLES PO PRN (00:37)
[2016-11-07] MEDS: NS 1,000 ML IV SCH ×2 (00:56→19:59)
[2016-11-07] MEDS: PRAVASTATIN 80 MG TABLET PO SCH ×2 (00:56→20:00)
[2016-11-07] MEDS ORDERED: HEPARIN 5000 UNITS/ML VIAL IV ONE (01:00)
[2016-11-07] MEDS: AZITHROMYCIN 500 MG in D5W 250 ML IV SCH (01:02)
[2016-11-07] MEDS: Albuterol/Ipratropium Neb 3 ML NEB NEB SCH ×3 (02:35→16:17)
[2016-11-07 05:54] LABS: LEUKOCYTES/URINE NEG (NEGATIVE); NITRITE/URINE NEG (NEGATIVE); RBC/URINE 0-2 (0-2); URINE OCCULT BLOOD 1+ (NEG/TRACE); WBC/URINE 0-2 (0-2)
[2016-11-07 06:40] LABS: MPV 7.8 fL (7.4-10.4)
[2016-11-07 07:16] LABS: BLOOD UREA NITROGEN 44 MG/DL (9-20); CALCIUM 8.3 MG/DL (8.4-10.2); CALCULATED OSMOLALITY 275 MOs/Kg (270-290); CHLORIDE 103 mEq/L (98-107); GLUCOSE 170 mg/dL (70-99); SODIUM LEVEL 135 mEq/L (137-146)
[2016-11-07] MEDS: REGULAR INSULIN 100 UNITS/ML - 3 ML VIAL SQ SCH ×5 (07:42→20:00)
[2016-11-07] MEDS: FUROSEMIDE 20 MG TAB PO SCH (07:44)
[2016-11-07] MEDS: LOSARTAN POTASSIUM 50 MG TAB PO SCH (07:44)
[2016-11-07] MEDS: FENOFIBRATE 145 MG TAB PO SCH (07:45)
[2016-11-07] MEDS: Verapamil 120 MG TAB PO SCH (07:46)
[2016-11-07 08:31] LABS: hTSH 0.91 uIU/mL (0.5-4.67)
[2016-11-07] MEDS: HEPARIN 5000 UNITS/ML VIAL IV SCH ×2 (08:46→16:44)
[2016-11-07] MEDS ORDERED: [UNRECOGNIZED DRUG - OTHER] PO SCH (09:00)
[2016-11-07] MEDS ORDERED: Non-Formulary Medication ITEM (Fenofibrate [Fenofibrate] 160 MG) PO SCH (09:00)
[2016-11-07] MEDS ORDERED: EPA PO SCH (09:00)
[2016-11-07] MEDS ORDERED: FISH OIL PO SCH (09:00)
[2016-11-07] MEDS ORDERED: OMEGA PO SCH (09:00)
[2016-11-07] MEDS ORDERED: DHA PO SCH (09:00)
[2016-11-07 09:03] LABS: FOLATES 5.72 ng/mL (>2.76)
[2016-11-07 09:04] LABS: % SATURATION 8.9 % (20-50)
--- NOTE | 2016-11-07 10:37 | GENMEDPROG ---
Chief Complaint: Left leg swelling Subjective Note: Patient resting comfortably this morning, has some slight shortness of breath and some discomfort in his left leg which feels tight, no sharp pains there. Denies any fevers or nausea. Notes Reviewed: Yes: Events from last night noted and discussed with Clinical Staff Current Medication List: Reviewed DVT Prophylaxis: Yes - Physical Examination Vital Signs and I&O: Last Vital Signs Temp 98.8 F 11/07/16 08:05 Pulse 89 11/07/16 10:00 Resp 18 11/07/16 08:05 BP 114/55 L 11/07/16 08:05 Pulse Ox 97 11/07/16 09:29 Oxygen Pulse Oxygen Saturation 97 O2 Device Nasal Cannula Oxygen Flow Rate 2 Fraction of Inspired Oxygen ( 25 FIO2) Intake & Output 11/05/16 11/06/16 11/07/16 11/08/16 06:59 06:59 06:59 06:59 Intake Total 1427 240 Output Total 625 Balance 802 240 Patient's weight 95.39 kg General: Alert, Oriented x3, No acute distress, Well appearing, Well nourished, Other (Normal and appropriate affect) HEENT: EOMI (Sclera white) Neck: Normal Trachea alignment, Normal inspection Lymphatics: Normal (no adenopathy) Respiratory: Normal - CTA (BBS clear to auscultation without adventitious sounds ) Extremities/Musculoskeletal: Edema (Impressive edema in the left leg all the way up to the groin.) Neurological: Cranial Nerves (II-XII intact) Lab/DI/Studies Reviewed: Laboratory Tests 11/06/16 11/06/16 11/07/16 12:41 23:20 06:22 WBC Hgb Hct INR 1.3 Potassium 4.4 Creatinine 2.00 H 1.50 H 11/07/16 06:22 WBC 12.9 H Hgb 9.3 L Hct 29.5 L INR Potassium Creatinine - Assessment (1) Abnormal CT scan, chest Acute R93.8 - ABNORMAL FINDINGS ON DIAGNOSTIC IMAGING OF BODY STRUCTURES Comment/Plan: Large left lung mass, lymphadenopathy, possible liver mets, and adrenal gland lesions. Plan: Will need CT abdomen/pelvis, but will hold off until patient is rehydrated so that we can get contrasted CT of the chest abdomen pelvis once his renal function improves. Case was already discussed with Dr. Chadwick of Oncology. (2) Acute kidney injury superimposed on chronic kidney disease Acute N17.9 - ACUTE KIDNEY FAILURE, UNSPECIFIED; N18.9 - CHRONIC KIDNEY DISEASE, UNSPECIFIED Comment/Plan: Baseline Cr 1.6. Admission Cr 2. GFR is 33. Plan: Trial of IVF for rehydration. (3) Anemia Acute D64.9 - ANEMIA, UNSPECIFIED Comment/Plan: Admission H/H prior to start of heparin IV gtt was 10.2/31.9. Etiology unknown. MCV 81. Plan: Monitor CBC. Check anemia labs. (4) COPD (chronic obstructive pulmonary disease) Acute J44.9 - CHRONIC OBSTRUCTIVE PULMONARY DISEASE, UNSPECIFIED Comment/ Plan: Patient was unaware of the severity of his COPD, and only takes ProAir once a day. Plan: Duonebs scheduled. PRN albuterol. Teaching regarding nebs and COPD diagnosis. Cultures. IV ceftriaxone and azithromycin. Will hold off on IV methylprednisolone for now, because his COPD could be at his baseline, there is no obvious evidence of exacerbation. (5) Left leg DVT Acute I82.402 - ACUTE EMBOLISM AND THOMBOS UNSP DEEP VEINS OF L LOW EXTREM Qualifiers: Affected thrombotic vein of extremity: femoral Chronicity: acute Qualified Code(s): I82.412 - Acute embolism and thrombosis of left femoral vein Comment/Plan: Severe DVT involving all deep veins of left leg, extending throughout the leg. Emergency department physician discussed case with the vascular surgeon chiropractor sole practitioner at [facility], to determine if the patient had any other options besides standard therapy for his DVT. Surgeon noted that because of the patient's creatinine level, he would not be a candidate for any other interventions, and recommended standard therapy. Plan: IV heparin gtt. Could consider IVC filter given his clinical course, if needed would consult Dr. Florentino at the request of family. (6) Type 2 diabetes mellitus with hyperglycemia Acute E11.65 - TYPE 2 DIABETES MELLITUS WITH HYPERGLYCEMIA Comment/Plan: Plan: Hold oral diabetes medications. Check fingerstick blood sugars q ac and hs. Sliding scale insulin. Ordered A1c and urine microalbumin.
[2016-11-07] MEDS: HEPARIN 500 ML IV SCH (10:49)
[2016-11-07] MEDS: OMEGA-3-ACID ETHYL ESTERS 1000 MG CAP PO SCH ×2 (11:28→16:43)
[2016-11-07] MEDS: MORPHINE 2 MG/ML INJECTION IV PRN ×2 (13:49→20:08)
--- NOTE | 2016-11-07 15:17 | PCM.CCCON2 ---
Consult Date: 11/07/16 Requesting Physician: Bear Del Castillo Consulting Doctor: Jenni Chadwick Consult Reason: Oncology (large lung mass), Hematology (anemia) Travel Outside of [place] in the Last 3 Months?: No Consultation Note: History of Present Illness: This is a 71-year-old man who is a heavy smoker and presented with shortness of breath and leg pain. A an ultrasound showed a large deep venous thrombosis of the entire left lower extremity which is occlusive. He had been having swelling and pain that had been steadily moving up the leg. He is now on IV heparin drip. However in the process of evaluating him he did have a CT of the chest which shows a large left lung mass contiguous with the left hilum and encasing the left upper lobe bronchus. Has significant mediastinal adenopathy up to 2.6 cm in diameter and right infrahilar soft tissue fullness as well. The mass is dumbbell shaped with a medial component measuring 5 cm and a lateral component measuring 5 cm with surrounding spiculation and small satellite nodules. There are some additional nodules in and the right lung which are tiny and uncertain significance. He also has bilateral retrocrural adenopathy up to 1.2 cm and upper retroperitoneal adenopathy. There is a possible lesion in the liver but we really are unable to visualize this adequately. He also has evidence of severe emphysema. He does admit that he has lost as much as 60 lb over the last year with a decrease in his appetite but really noticed worsening weakness over the last few months. He has a chronic smoker 's cough but denies chest pain, hemoptysis, or wheezing. He does have chronic dyspnea. He denies pain elsewhere or fevers. Past Medical History: Diabetes mellitus hypertension, hyperlipidemia, valvular heart disease, COPD, obstructive sleep apnea, chronic kidney disease stage 3, osteoarthritis Past Surgical History: . Has had open heart surgery for aortic valve replacement in September of 2012. He has also had tonsillectomy, appendectomy at young ages and hemorrhoid surgery as well as abscess from the buttocks. Allergies levofloxacin From Levaquin Allergy (Verified 11/06/16 12:01) Nausea/Vomiting Home Medications Albuterol Sulfate [Proair Hfa] 1 - 2 puff INH Q4-6H PRN 11/06/16 Amitriptyline HCl 25 mg PO QHS PRN 11/06/16 Aspirin (Enteric Coated) [Ecotrin] 81 mg PO DAILY 11/06/16 Clopidogrel Bisulfate [Plavix] 75 mg PO DAILY 11/06/16 Fenofibrate 160 mg PO DAILY 11/06/16 Furosemide [Lasix] 20 mg PO DAILY 11/06/16 Insulin Regular, Human [Humulin R] 8 unit SQ .TID SLIDING SCALE 11/06/16 Insulin Regular, Human [Humulin R] 8 unit SQ 2000 PRN 11/06/16 Liraglutide [Victoza 0.6 mg/0.1 ml] 1.8 mg SQ .QPM 11/06/16 Losartan Potassium 50 mg PO DAILY 11/06/16 Chandler-3/Dha/Epa/Fish Oil [Fish Oil 1,400 mg Softgel] 1 cap PO BID 11/06/16 Pravastatin [Pravachol] 80 mg PO QHS 11/06/16 Promethazine [Phenergan] 25 mg PO Q8H PRN 11/06/16 Super Beta Prostate 2 tab PO .QPM 11/06/16 Verapamil HCl [Verapamil ER] 120 mg PO DAILY 11/06/16 Family History: His father had prostate cancer but no other malignancy in the family. Social History: Traveled outside the [place] in the last 3 months? No. He is a heavy tobacco smoker up to 3 packs per day since age 11. He does not drink alcohol. He is retired but worked with the [employer]. He is and his is present. Review of Systems: [] Physical Examination: Temperature: 98.1 F (11/07/16 10:51)HR: 96 (11/07/16 14:00)RR: 20 (11/07/16 10: 51)BP: 105/47 (11/07/16 10:51) SAT:95 (11/07/16 10:51) This is a large white male who has a somewhat depressed affect this morning. HEENT: pupils are equal, round, reactive to light. Sclera are nonicteric. Posterior pharynx is erythematous with dry mucous membranes. No thyromegaly. No adenopathy is palpated in the cervical, clavicular, axillary or inguinal areas. Lungs are clear to auscultation and percussion. Heart has a regular rate and rhythm with no murmurs or gallops. Abdomen is soft, no masses or tenderness. I can feel the right hepatic a edge approximately 2 1-2 finger breaths below the right costal margin and somewhat nodular but nontender. Extremities revealed 2 to 3+ edema of the entire left lower extremity.. Neurologic exam is grossly intact. LAB/DI: Laboratory Results - last 24 hr 11/06/16 11/06/16 11/06/16 12:41 12:46 23:20 WBC RBC Hgb Hct MCV MCH MCHC RDW Plt Count MPV Retic Count (auto) PT 13.2 H INR 1.3 APTT 39.8 H Sodium Potassium Chloride Carbon Dioxide Anion Gap BUN Creatinine Estimated GFR (MDRD) Glucose POC Capillary Glucose Hemoglobin A1c Calculated Osmolality Calcium Iron TIBC % Saturation Ferritin Inw-J-Cocbfpsipnp Pept Cancelled 435 Vitamin B12 Serum Folate TSH Urine Color Urine Clarity Urine pH Ur Specific [place] Urine Protein Urine Glucose (UA) Urine Ketones Urine Occult Blood Urine Nitrite Urine Bilirubin Urine Urobilinogen Ur Leukocyte Esterase Urine RBC Urine WBC Ur Epithelial Cells Stool Occult Blood 11/07/16 11/07/16 11/07/16 00:01 05:25 05:46 WBC RBC Hgb Hct MCV MCH MCHC RDW Plt Count MPV Retic Count (auto) PT INR APTT Sodium Potassium Chloride Carbon Dioxide Anion Gap BUN Creatinine Estimated GFR (MDRD) Glucose POC Capillary Glucose 175 H Hemoglobin A1c 6.1 H Calculated Osmolality Calcium Iron TIBC % Saturation Ferritin Iev-U-Xiibsgjorva Pept Vitamin B12 Serum Folate TSH Urine Color Yellow Urine Clarity Clear Urine pH 5.0 Ur Specific [place] 1.010 Urine Protein Neg Urine Glucose (UA) Neg Urine Ketones Neg Urine Occult Blood 1+ H Urine Nitrite Neg Urine Bilirubin Neg Urine Urobilinogen <2.0 Ur Leukocyte Esterase Neg Urine RBC 0-2 Urine WBC 0-2 Ur Epithelial Cells Occ Stool Occult Blood 11/07/16 11/07/16 11/07/16 06:22 06:22 06:22 WBC 12.9 H RBC 3.68 L Hgb 9.3 L Hct 29.5 L MCV 80 MCH 25.2 L MCHC 31.5 L RDW 16.3 H Plt Count 205 MPV 7.8 Retic Count (auto) PT INR APTT 41.7 H Sodium 135 L Potassium 4.4 Chloride 103 Carbon Dioxide 26 Anion Gap 10 BUN 44 H Creatinine 1.50 H Estimated GFR (MDRD) 46 L Glucose 170 H POC Capillary Glucose Hemoglobin A1c Calculated Osmolality 275 Calcium 8.3 L Iron TIBC % Saturation Ferritin Iad-T-Tpkzbaiygrp Pept Vitamin B12 Serum Folate TSH 0.91 Urine Color Urine Clarity Urine pH Ur Specific [place] Urine Protein Urine Glucose (UA) Urine Ketones Urine Occult Blood Urine Nitrite Urine Bilirubin Urine Urobilinogen Ur Leukocyte Esterase Urine RBC Urine WBC Ur Epithelial Cells Stool Occult Blood 11/07/16 11/07/16 11/07/16 06:22 06:22 10:08 WBC RBC Hgb Hct MCV MCH MCHC RDW Plt Count MPV Retic Count (auto) 2.6 PT INR APTT Sodium Potassium Chloride Carbon Dioxide Anion Gap BUN Creatinine Estimated GFR (MDRD) Glucose POC Capillary Glucose Hemoglobin A1c Calculated Osmolality Calcium Iron 33.0 L TIBC 368 % Saturation 8.9 L Ferritin 362.0 Bgy-Y-Hzbcfxzmgoq Pept Vitamin B12 > 1000 H Serum Folate 5.72 TSH Urine Color Urine Clarity Urine pH Ur Specific [place] Urine Protein Urine Glucose (UA) Urine Ketones Urine Occult Blood Urine Nitrite Urine Bilirubin Urine Urobilinogen Ur Leukocyte Esterase Urine RBC Urine WBC Ur Epithelial Cells Stool Occult Blood Neg 11/07/16 11/07/16 11/07/16 11:18 11:20 13:23 WBC RBC Hgb Hct MCV MCH MCHC RDW Plt Count MPV Retic Count (auto) PT INR APTT Sodium Potassium Chloride Carbon Dioxide Anion Gap BUN Creatinine Estimated GFR (MDRD) Glucose POC Capillary Glucose 431 H 426 H 348 H Hemoglobin A1c Calculated Osmolality Calcium Iron TIBC % Saturation Ferritin Jtp-U-Qqrxxygfyxn Pept Vitamin B12 Serum Folate TSH Urine Color Urine Clarity Urine pH Ur Specific [place] Urine Protein Urine Glucose (UA) Urine Ketones Urine Occult Blood Urine Nitrite Urine Bilirubin Urine Urobilinogen Ur Leukocyte Esterase Urine RBC Urine WBC Ur Epithelial Cells Stool Occult Blood Recommendations: Impression and recommendations: 1. Large left lung mass with extensive mediastinal adenopathy and so this represents at least a stage III lung carcinoma which appears to be bronchogenic. If the liver lesions are confirmed that would actually make this a stage IV. I have discussed these findings openly with the patient and his but we do need to get a tissue diagnosis. 2. Massive deep venous thrombosis of the left lower extremity. 3. Anemia. Evaluation so far is unremarkable. 4. Pulmonary embolism. I have recommended that he consider lifelong anticoagulation. I will order a CT of the abdomen now that his creatinine has improved somewhat with IV hydration. We do need to get a biopsy done and I would recommend we do so while he is on an intravenous heparin drip as this will be much easier to stop temporarily prior to the biopsy and resume quickly afterwards. I would recommend long-term low molecular weight heparin when he is discharged in the form of Lovenox or Arixtra. We can ask the radiology interventional radiologist whether would be best to approach the lung lesion or liver lesion. I did explain to the patient and his that this is not an operable situation and his only option will be chemotherapy. He had a fairly decent performance status prior to coming year but I currently would rated as a ECOG 2. I did discuss code status and he wishes no resuscitation in the event of a cardio respiratory arrest. I will place a DNR order in the chart. Thank you for this consultation.
[2016-11-07] MEDS: CEFTRIAXONE 1 GM in D5W 100 ML IV SCH (23:07)
[2016-11-08] MEDS: Albuterol/Ipratropium Neb 3 ML NEB NEB SCH ×3 (00:39→16:06)
[2016-11-08] MEDS: HEPARIN 500 ML IV SCH ×3 (02:09→15:39)
[2016-11-08] MEDS: AZITHROMYCIN 500 MG in D5W 250 ML IV SCH (02:10)
[2016-11-08] MEDS: NS 1,000 ML IV SCH ×2 (02:10→08:03)
[2016-11-08] MEDS: MORPHINE 2 MG/ML INJECTION IV PRN (02:20)
[2016-11-08 05:18] LABS: AUTOMATED BASOPHIL 0.9 % (0-2); AUTOMATED EOSINOPHIL 5.7 % (0-5); AUTOMATED LYMPH 18.3 % (17-44); AUTOMATED MONOCYTE 7.9 % (3-10); AUTOMATED NEUTROPHIL 67.2 % (45-76); MPV 7.6 fL (7.4-10.4)
[2016-11-08] MEDS: REGULAR INSULIN 100 UNITS/ML - 3 ML VIAL SQ SCH ×4 (05:52→21:15)
[2016-11-08] MEDS: LOSARTAN POTASSIUM 50 MG TAB PO SCH (08:04)
[2016-11-08] MEDS: Verapamil 120 MG TAB PO SCH (08:04)
[2016-11-08] MEDS: FENOFIBRATE 145 MG TAB PO SCH (08:04)
[2016-11-08] MEDS: FUROSEMIDE 20 MG TAB PO SCH (08:04)
[2016-11-08] MEDS ORDERED: DIATRIZOATE MEGLMINE/SODIUM 30 ML BOTTLE PO ONE (08:04)
[2016-11-08] MEDS ORDERED: Pharmacy Review for Metformin - IV Contrast Given SCH ×4 (09:00→16:00)
--- NOTE | 2016-11-08 09:22 | GENMEDPROG ---
Chief Complaint: Large DVT Subjective Note: Doing well, no acute complaints. Denies any shortness of breath at rest, says that his left leg feels better than the day prior. Notes Reviewed: Yes: Events from last night noted and discussed with Clinical Staff Current Medication List: Reviewed Currently: Reports: Wheezing, SOB DVT Prophylaxis: Yes - Physical Examination Vital Signs and I&O: Last Vital Signs Temp 97.4 F L 11/08/16 07:52 Pulse 80 11/08/16 09:00 Resp 20 11/08/16 07:52 BP 136/59 L 11/08/16 07:52 Pulse Ox 98 11/08/16 07:52 Oxygen Pulse Oxygen Saturation 98 O2 Device Nasal Cannula Oxygen Flow Rate 2 Fraction of Inspired Oxygen ( 25 FIO2) Intake & Output 11/06/16 11/07/16 11/08/16 11/09/16 06:59 06:59 06:59 06:59 Intake Total 1427 3814 Output Total 625 1900 600 Balance 802 1914 -600 Patient's weight 95.39 kg 96.116 kg General: Alert, Oriented x3, No acute distress, Well appearing, Well nourished, Other (Normal and appropriate affect) HEENT: EOMI (Sclera white) Neck: Normal Trachea alignment, Normal inspection Lymphatics: Normal (no adenopathy) Respiratory: Normal - CTA (BBS clear to auscultation without adventitious sounds ) Extremities/Musculoskeletal: Edema (Impressive edema in the left leg all the way up to the groin, seems a little better today. Sensation is intact, he has good capillary refill throughout his left lower extremity.) Neurological: Cranial Nerves (II-XII intact) Psych/Mental Status: Normal Affect (Fully oriented, [place] and appropriate affect ) Lab/DI/Studies Reviewed: Laboratory Tests 11/08/16 05:00 WBC 12.9 H Hgb 8.8 L - Assessment (1) Abnormal CT scan, chest Acute R93.8 - ABNORMAL FINDINGS ON DIAGNOSTIC IMAGING OF BODY STRUCTURES Comment/Plan: Large left lung mass, lymphadenopathy, possible liver mets, and adrenal gland lesions. Plan: Creatinine is much better today, will continue to hydrate, and obtain CT of the chest abdomen and pelvis to better elucidate potential liver metastases, as well as to rule out pulmonary emboli. Oncology has been consulted and are following along, appreciate their assistance. (2) Acute kidney injury superimposed on chronic kidney disease Acute N17.9 - ACUTE KIDNEY FAILURE, UNSPECIFIED; N18.9 - CHRONIC KIDNEY DISEASE, UNSPECIFIED Comment/Plan: Baseline Cr 1.6. Admission Cr 2. GFR is 33. Plan: Trial of IVF for rehydration. (3) Anemia Acute D64.9 - ANEMIA, UNSPECIFIED Comment/Plan: Admission H/H prior to start of heparin IV gtt was 10.2/31.9. Etiology unknown. MCV 81. Plan: Monitor CBC. Check anemia labs. (4) COPD (chronic obstructive pulmonary disease) Acute J44.9 - CHRONIC OBSTRUCTIVE PULMONARY DISEASE, UNSPECIFIED Comment/ Plan: Patient was unaware of the severity of his COPD, and only takes ProAir once a day. Plan: Duonebs scheduled. PRN albuterol. Teaching regarding nebs and COPD diagnosis. Cultures. IV ceftriaxone and azithromycin. Will hold off on IV methylprednisolone for now, because his COPD could be at his baseline, there is no obvious evidence of exacerbation. (5) Left leg DVT Acute I82.402 - ACUTE EMBOLISM AND THOMBOS UNSP DEEP VEINS OF L LOW EXTREM Qualifiers: Affected thrombotic vein of extremity: femoral Chronicity: acute Qualified Code(s): I82.412 - Acute embolism and thrombosis of left femoral vein Comment/Plan: Severe DVT involving all deep veins of left leg, extending throughout the leg. Emergency department physician discussed case with the vascular surgeon traffic control officer at [facility], to determine if the patient had any other options besides standard therapy for his DVT. Surgeon noted that because of the patient's creatinine level, he would not be a candidate for any other interventions, and recommended standard therapy. Plan: IV heparin gtt. Could consider IVC filter given his clinical course, if needed would consult Dr. Florentino at the request of family. (6) Type 2 diabetes mellitus with hyperglycemia Acute E11.65 - TYPE 2 DIABETES MELLITUS WITH HYPERGLYCEMIA Comment/Plan: Plan: Hold oral diabetes medications. Check fingerstick blood sugars q ac and hs. Sliding scale insulin. Ordered A1c and urine microalbumin. - Plan Continue present care, keep patient on heparin drip until diagnostic biopsies have been performed.
[2016-11-08] MEDS ORDERED: METOPROLOL 5 MG/5 ML SDV IV ONE (10:31)
[2016-11-08] MEDS ORDERED: NS 500 ML IV ONE (10:36)
[2016-11-08] MEDS: OMEGA-3-ACID ETHYL ESTERS 1000 MG CAP PO SCH ×2 (10:56→15:58)
--- NOTE | 2016-11-08 11:22 | PCM.CCPN2 ---
Oncology/Hematology Progress Note: HISTORY OF PRESENT ILLNESS: This is a 71-year-old man who was admitted for extensive deep venous thrombosis of the left lower extremity and found to have a large lung mass on the left side with bilateral mediastinal adenopathy and so consistent with at least stage III bronchogenic carcinoma. He also has at least [address] liver lesion and CT scan of the abdomen has been ordered for today to complete staging. We still need a tissue diagnosis and hopefully that can be arranged through interventional radiology in the next few days. Continues to receive intravenous heparin and so this can be held at any time. The patient denies any chest pain or palpitations but does have dyspnea with any exertion. He was found to have tachycardia with rapid atrial fibrillation and is currently getting medication for that. DR Pablo and the nurse are at the bedside treating this and the patient does not seem in distress. We had discussed the scan findings and likelihood of malignancy when I met him yesterday. I have ordered a CEA as well. PHYSICAL EXAMINATION: Last Vital Signs Temp 97.4 F L 11/08/16 07:52 Pulse 97 11/08/16 10:53 Resp 22 11/08/16 10:53 BP 102/60 11/08/16 11:04 Pulse Ox 93 11/08/16 10:53 This is a large white male who has oxygen in place. HEENT: pupils are equal, round, reactive to light. Sclera are nonicteric. Posterior pharynx is benign, but mucous membranes are erythematous. No thyromegaly. No adenopathy is palpated in the cervical, clavicular, axillary or inguinal areas. Lungs are clear to auscultation and percussion. Heart is irregularly irregular with tachycardia. Abdomen is soft, no masses or tenderness. I can palpate the liver edge just 1 finger breaths below the right costal margin and somewhat nodular. Extremities are without edema. Neurologic exam is grossly intact. LABORATORY DATA: Laboratory Results - last 24 hr 11/07/16 11/07/16 11/07/16 11:18 11:20 13:23 WBC RBC Hgb Hct MCV MCH MCHC RDW Plt Count MPV Neut % (Auto) Lymph % (Auto) Phillips % (Auto) Eos % (Auto) Baso % (Auto) Absolute Neuts (auto) Absolute Lymphs (auto) APTT POC Capillary Glucose 431 H 426 H 348 H 11/07/16 11/07/16 11/07/16 15:30 16:47 19:32 WBC RBC Hgb Hct MCV MCH MCHC RDW Plt Count MPV Neut % (Auto) Lymph % (Auto) Phillips % (Auto) Eos % (Auto) Baso % (Auto) Absolute Neuts (auto) Absolute Lymphs (auto) APTT 40.8 H POC Capillary Glucose 233 H 284 H 11/07/16 11/08/16 11/08/16 23:20 05:00 05:00 WBC 12.9 H RBC 3.41 L Hgb 8.8 L Hct 27.5 L MCV 81 MCH 25.8 L MCHC 31.9 L RDW 15.8 H Plt Count 217 MPV 7.6 Neut % (Auto) 67.2 Lymph % (Auto) 18.3 Phillips % (Auto) 7.9 Eos % (Auto) 5.7 H Baso % (Auto) 0.9 Absolute Neuts (auto) 8.64 H Absolute Lymphs (auto) 2.32 APTT 47.4 H 52.0 H POC Capillary Glucose 11/08/16 05:50 WBC RBC Hgb Hct MCV MCH MCHC RDW Plt Count MPV Neut % (Auto) Lymph % (Auto) Phillips % (Auto) Eos % (Auto) Baso % (Auto) Absolute Neuts (auto) Absolute Lymphs (auto) APTT POC Capillary Glucose 206 H Impression and recommendations: 1. Large lung mass which is likely stage III -IV bronchogenic carcinoma. We still need to get a tissue diagnosis and complete his staging. 2. Massive deep venous thrombosis of the left lower extremity. We need to rule out pulmonary emboli with his sudden onset of atrial fibrillation. 3. New onset atrial fibrillation. 4. Worsening anemia. B12, folate and irone studies are normal and reticulocyte count 2.6%. His hemoglobin was low on admission at 10.2 but has now dropped to 8.8. Dr. Corey is addressing his cardiac arrhythmias and has ordered CT of chest , abdomen and pelvis. Hopefully this can still be performed later today if he stabilizes. We will want to request interventional radiology to perform a biopsy of either the lung lesion or the liver to get a tissue diagnosis before we can move further with a treatment plan for his malignancy. I have recommended long-term low molecular weight heparin after discharge as this is the recommended approach for deep venous thrombosis in the face of malignancy. I will continue to follow along.
[2016-11-08] MEDS: OXYCODONE HCL 5 MG TABLET PO PRN ×2 (12:38→15:57)
--- NOTE | 2016-11-08 13:31 | CAPUEKG ---
[place], [place] Test Date: 2016-11-08 Pat Name: RAFA JACKSON Department: Room: 449 Gender: Male Belt Sewer: : Requested By: Order Number: Reading MD: Abran Felipe Measurements Intervals [place] Rate: 121 P: IA: QRS: 53 QRSD: 78 T: 21 QT: 318 QTc: 451 Interpretive Statements Atrial fibrillation with rapid ventricular response No S-T shift during tachycardia Since tracing of 11/06/16, afib is new. Abnormal ECG Electronically Signed On 11-08-16 13:31:41 EST by Abran Felipe [id number] [id number]
--- NOTE | 2016-11-08 15:41 | DIRPT ---
CLINICAL DATA: Short of breath EXAM: PORTABLE CHEST 1 VIEW COMPARISON: CT chest 11/06/2016. Chest x-ray 11/06/2016 FINDINGS: Left upper lobe mass lesion unchanged. Findings are concerning for carcinoma of the lung. COPD with pulmonary scarring bilaterally. Prior CABG. Negative for heart failure or effusion. IMPRESSION: Left upper lobe mass lesion unchanged, concerning for lung cancer COPD with scarring. No change from 11/06/2016 Electronically Signed By: Lg Mcknight M.D. On: 11/08/2016 15:38
[2016-11-08] MEDS ORDERED: METOPROLOL TARTRATE 25 MG TAB PO ONE (18:00)
[2016-11-08] MEDS ORDERED: PREDNISONE 20 MG TAB PO ONE (18:30)
[2016-11-08] MEDS ORDERED: METOPROLOL TARTRATE 25 MG TAB PO SCH (21:00)
[2016-11-08] MEDS: METOPROLOL TARTRATE 25 MG TAB PO SCH (21:16)
[2016-11-08] MEDS: PRAVASTATIN 80 MG TABLET PO SCH (21:16)
[2016-11-08] MEDS: CEFTRIAXONE 1 GM in D5W 100 ML IV SCH (23:45)
[2016-11-09] MEDS: HEPARIN 500 ML IV SCH ×3 (00:13→15:27)
[2016-11-09] MEDS: Albuterol/Ipratropium Neb 3 ML NEB NEB SCH ×4 (00:52→23:41)
[2016-11-09] MEDS: AZITHROMYCIN 500 MG in D5W 250 ML IV SCH (02:55)
[2016-11-09] MEDS: REGULAR INSULIN 100 UNITS/ML - 3 ML VIAL SQ SCH ×5 (05:38→21:15)
[2016-11-09 06:27] LABS: AUTOMATED BASOPHIL 0.2 % (0-2); AUTOMATED EOSINOPHIL 0.2 % (0-5); AUTOMATED LYMPH 13.4 % (17-44); AUTOMATED MONOCYTE 3.6 % (3-10); AUTOMATED NEUTROPHIL 82.6 % (45-76); MPV 7.5 fL (7.4-10.4)
[2016-11-09] MEDS ORDERED: DIATRIZOATE MEGLMINE/SODIUM 30 ML BOTTLE PO ONE (07:00)
[2016-11-09 07:29] LABS: BLOOD UREA NITROGEN 31 MG/DL (9-20); CALCULATED OSMOLALITY 272 MOs/Kg (270-290); CHLORIDE 103 mEq/L (98-107); GLUCOSE 282 mg/dL (70-99); SODIUM LEVEL 132 mEq/L (137-146)
[2016-11-09] MEDS: PREDNISONE 20 MG TAB PO SCH (10:26)
[2016-11-09] MEDS: FENOFIBRATE 145 MG TAB PO SCH (10:26)
[2016-11-09] MEDS: LOSARTAN POTASSIUM 50 MG TAB PO SCH (10:27)
[2016-11-09] MEDS: Verapamil 120 MG TAB PO SCH (10:27)
--- NOTE | 2016-11-09 10:27 | DIRPT ---
CLINICAL DATA: Assessment for pulmonary embolus. DVT. Left lung mass. Assessment for metastatic disease. EXAM: CT ANGIOGRAPHY CHEST, ABDOMEN AND PELVIS TECHNIQUE: Multidetector CT imaging through the chest, abdomen and pelvis was performed using the standard protocol during bolus administration of intravenous contrast. Multiplanar reconstructed images and MIPs were obtained and reviewed to evaluate the vascular anatomy. CONTRAST: 100 cc Isovue 370 COMPARISON: 11/06/2016 FINDINGS: Despite efforts by the technologist and patient, motion artifact is present on today's exam and could not be eliminated. This reduces exam sensitivity and specificity. CTA CHEST FINDINGS Mediastinum/Nodes: No filling defect is identified in the pulmonary arterial tree to suggest pulmonary embolus. Coronary, aortic arch, and branch vessel atherosclerotic vascular disease. Aortic valve prosthesis. Faint calcification of the mitral valve. Mild mural thrombus in the descending thoracic aorta, slightly irregular, without specific findings of penetrating ulcer or acute aortic finding. Pathologic mediastinal and left hilar adenopathy, including an 8 index AP window node measuring 2.6 cm in short axis on image 41 series 3. The hilar adenopathy is somewhat conglomerate with the left lung mass which seems to primarily be in the left upper lobe. Mild cardiomegaly. Left axillary lymph node 1.2 cm in short axis on image 20 series 3. Lungs/Pleura: Small bilateral pleural effusions. Abnormal interstitial accentuation in the lung apices. Centrilobular emphysema. Left upper lobe multilobular lung mass partially surrounds vascular structures and measures about 10.7 by 6.3 cm on image 63 series 4, with adjacent indistinct airspace and interstitial opacity. 5 mm right upper lobe nodule, image 57 series 4. Small right middle lobe nodules including an 8 by 7 mm nodule on image 78 series 4. Bilateral airway thickening is observed. The left lower lobe is atelectatic with truncation of the left lower lobe bronchus shown on images 64-66 of series 4. Musculoskeletal: Mild thoracic spondylosis. Prior median sternotomy. Review of the MIP images confirms the above findings. CTA ABDOMEN AND PELVIS FINDINGS Hepatobiliary: Scattered hypodense lesions throughout all segments of the liver are concerning for metastatic disease. The largest measures 3.4 by 5.9 cm on image 135 series 3. Mild pericholecystic fluid/ edema potentially with mild gallbladder wall thickening. Pancreas: Unremarkable Spleen: Unremarkable Adrenals/Urinary Tract: Nonspecific 0.7 by 1.3 cm nodule along the genu of the left adrenal gland, image 135 series 3, merits observation. Nonspecific 1.2 by 1.8 cm right adrenal nodule, image 137 series 3. Atrophic right kidney with multiple cysts most of which are simple but some of which are technically too small to characterize. Scattered left renal cysts are observed measuring up to 10.2 cm in long axis diameter. No definite enhancing renal mass. Urinary bladder unremarkable, no hydronephrosis. Stomach/Bowel: Several sigmoid colon diverticula present. Vascular/Lymphatic: Notable atherosclerotic calcification, with some atheromatous plaque and mild mural thrombus in the abdominal aorta but without abdominal aortic aneurysm. There is evidence of deep vein thrombosis involving the left common femoral vein and potentially some tributaries. There is retrocrural, teddy hepatis/ peripancreatic, and retroperitoneal adenopathy. Index right retrocrural node 1.2 cm in short axis, image 131 series 3. Index peripancreatic node 1.8 cm in short axis, image 136 series 3. Index portacaval node 1.9 cm in short axis, image 150 series 3. Reproductive: Penile implant, reservoir to the right in the urinary bladder. Some irregular calcification along the reservoir margins. Other: Trace perihepatic and perisplenic ascites . Musculoskeletal: Stranding in the left after thigh likely related to the DVT. Disc bulge and left foraminal disc protrusion at L4-5 causing considerable left and mild right foraminal stenosis. There is disc bulge at the L3-4 level as well. Review of the MIP images confirms the above findings. IMPRESSION: 1. Left lower extremity deep vein thrombosis is observed without visible pulmonary embolus. Motion artifact mildly reduces sensitivity. 2. Multilobular left upper lobe lung mass with associated left hilar and mediastinal adenopathy, questionable left axillary adenopathy, scattered masses in the liver suspicious for hepatic metastatic disease, and bilateral adrenal nodules which are otherwise nonspecific. Nuclear medicine PET-CT may help in determining whether these adrenal and hepatic lesions are indeed metastatic. 3. There is also extensive upper abdominal adenopathy in the retroperitoneum, retrocrural region, and teddy hepatis. 4. Mild upper abdominal ascites, cause uncertain. 5. Left lower lobe atelectasis with abrupt truncation of the left lower lobe bronchus - tumor involvement of left lower lobe difficult to exclude. 6. Other imaging findings of potential clinical significance: Coronary, aortic arch, and branch vessel atherosclerotic vascular disease. Aortic valve prosthesis. Mild cardiomegaly. Small bilateral pleural effusions. Centrilobular emphysema. Bilateral airway thickening. Atrophic right kidney with multiple bilateral renal cysts. Lumbar spondylosis causing impingement at L4-5. Electronically Signed By: Cirilo Pacheco M.D. On: 11/09/2016 10:24
[2016-11-09] MEDS: METOPROLOL TARTRATE 25 MG TAB PO SCH ×2 (10:28→21:17)
[2016-11-09] MEDS: FUROSEMIDE 20 MG TAB PO SCH (10:28)
[2016-11-09] MEDS: OMEGA-3-ACID ETHYL ESTERS 1000 MG CAP PO SCH ×2 (11:41→16:18)
[2016-11-09] MEDS ORDERED: Albuterol/Ipratropium Neb 3 ML NEB NEB PRN (14:49)
--- NOTE | 2016-11-09 14:53 | GENMEDPROG ---
Subjective Note: Patient in bed responsive follows come. Coughing producing fair amount thick sputum. Still short of breath tight in the chest and wheezy. No bleeding related to heparin. Notes Reviewed: Yes: Events from last night noted and discussed with Clinical Staff Current Medication List: Reviewed Currently: Reports: Wheezing, OLEARY, SOB, Sputum, Tobacco Use/Hx, Reflux Sx DVT Prophylaxis: Yes - Physical Examination Vital Signs and I&O: Last Vital Signs Temp 97.4 F L 11/09/16 11:19 Pulse 97 11/09/16 11:40 Resp 20 11/09/16 11:19 BP 134/55 L 11/09/16 11:19 Pulse Ox 95 11/09/16 11:19 Oxygen Pulse Oxygen Saturation 95 O2 Device Nasal Cannula Oxygen Flow Rate 2 Fraction of Inspired Oxygen ( 25 FIO2) Intake & Output 11/06/16 11/07/16 11/08/16 11/09/16 23:59 23:59 23:59 23:59 Intake Total 20 3387 3780 1574 Output Total 2525 2850 1200 Balance 20 862 930 374 Patient's weight 93.485 kg 95.39 kg 96.116 kg 99.881 kg General: Alert, Oriented x3, Cooperative, No acute distress, Well appearing, Well nourished, Other (Normal and appropriate affect) HEENT: Normal, PERRLA, EOMI (Sclera white), Anicteric Sclera Neck: Normal Trachea alignment, Normal inspection Lymphatics: Normal (no adenopathy) Respiratory: Diminished, Rhonchi Cardiovascular: Regular rate, Normal S1, Normal S2, Murmurs GI: Normal bowel sounds, Soft, Non tender, No hepatospenomegaly, No masses Extremities/Musculoskeletal: Edema (Impressive edema in the left leg all the way up to the groin, seems a little better today. Sensation is intact, he has good capillary refill throughout his left lower extremity.), Other (left leg swelling) Skin: Warm,Dry and Intact, No rashes, No breakdown, No significant lesion Neurological: Normal speech, Normal tone, Cranial nerves 3-12 NL, Cranial Nerves (II-XII intact) Psych/Mental Status: Normal Affect (Fully oriented, [place] and appropriate affect ), Anxious Lab/DI/Studies Reviewed: Allergies levofloxacin [From Levaquin] Allergy (Verified 11/06/16 12:01) Nausea/Vomiting 02/06/17 06:05 11/09/16 06:05 Abnormal Lab Results 11/08/16 11/08/16 11/08/16 16:07 20:11 23:00 RBC Hgb Hct MCH MCHC RDW Neut % (Auto) Lymph % (Auto) APTT 43.2 H Sodium BUN Creatinine Estimated GFR (MDRD) Glucose POC Capillary Glucose 273 H 380 H Calcium 11/09/16 11/09/16 11/09/16 05:30 06:05 06:05 RBC Hgb Hct MCH MCHC RDW Neut % (Auto) Lymph % (Auto) APTT 58.1 H Sodium 132 L BUN 31 H Creatinine 1.30 H Estimated GFR (MDRD) 55 L Glucose 282 H POC Capillary Glucose 321 H Calcium 8.0 L 11/09/16 11/09/16 06:05 11:23 RBC 3.40 L Hgb 8.9 L Hct 27.3 L MCH 26.2 L MCHC 32.5 L RDW 16.1 H Neut % (Auto) 82.6 H Lymph % (Auto) 13.4 L APTT Sodium BUN Creatinine Estimated GFR (MDRD) Glucose POC Capillary Glucose 218 H Calcium Last Vital Signs Temp 97.4 F L 11/09/16 11:19 Pulse 97 11/09/16 11:40 Resp 20 11/09/16 11:19 BP 134/55 L 11/09/16 11:19 Pulse Ox 95 11/09/16 11:19 Patient Name: RAFA JACKSON LOC: [facility] : 1945 AGE: 71 Order Date:11/08/16 Date of Service:03/20 Report # [id number] Ord Physician: Jenni Chadwick MD Exam # [id number] Emergency Physician: Meera Chavez MD Exam(s): [id number] CT/CT ANGIO [id number] CLINICAL DATA: Assessment for pulmonary embolus. DVT. Left lung mass. Assessment for metastatic disease. EXAM: CT ANGIOGRAPHY CHEST, ABDOMEN AND PELVIS TECHNIQUE: Multidetector CT imaging through the chest, abdomen and pelvis was performed using the standard protocol during bolus administration of intravenous contrast. Multiplanar reconstructed images and MIPs were obtained and reviewed to evaluate the vascular anatomy. CONTRAST: 100 cc Isovue 370 COMPARISON: 11/06/2016 FINDINGS: Despite efforts by the technologist and patient, motion artifact is present on today's exam and could not be eliminated. This reduces exam sensitivity and specificity. CTA CHEST FINDINGS Mediastinum/Nodes: No filling defect is identified in the pulmonary arterial tree to suggest pulmonary embolus. Coronary, aortic arch, and branch vessel atherosclerotic vascular disease. Aortic valve prosthesis. Faint calcification of the mitral valve. Mild mural thrombus in the descending thoracic aorta, slightly irregular, without specific findings of penetrating ulcer or acute aortic finding. Pathologic mediastinal and left hilar adenopathy, including an 8 index AP window node measuring 2.6 cm in short axis on image 41 series 3. The hilar adenopathy is somewhat conglomerate with the left lung mass which seems to primarily be in the left upper lobe. Mild cardiomegaly. Left axillary lymph node 1.2 cm in short axis on image 20 series 3. Lungs/Pleura: Small bilateral pleural effusions. Abnormal interstitial accentuation in the lung apices. Centrilobular emphysema. Left upper lobe multilobular lung mass partially surrounds vascular structures and measures about 10.7 by 6.3 cm on image 63 series 4, with adjacent indistinct airspace and interstitial opacity. 5 mm right upper lobe nodule, image 57 series 4. Small right middle lobe nodules including an 8 by 7 mm nodule on image 78 series 4. Bilateral airway thickening is observed. The left lower lobe is atelectatic with truncation of the left lower lobe bronchus shown on images 64-66 of series 4. Musculoskeletal: Mild thoracic spondylosis. Prior median sternotomy. Review of the MIP images confirms the above findings. CTA ABDOMEN AND PELVIS FINDINGS Hepatobiliary: Scattered hypodense lesions throughout all segments of the liver are concerning for metastatic disease. The largest measures 3.4 by 5.9 cm on image 135 series 3. Mild pericholecystic fluid/ edema potentially with mild gallbladder wall thickening. Pancreas: Unremarkable Spleen: Unremarkable Adrenals/Urinary Tract: Nonspecific 0.7 by 1.3 cm nodule along the genu of the left adrenal gland, image 135 series 3, merits observation. Nonspecific 1.2 by 1.8 cm right adrenal nodule, image 137 series 3. Atrophic right kidney with multiple cysts most of which are simple but some of which are technically too small to characterize. Scattered left renal cysts are observed measuring up to 10.2 cm in long axis diameter. No definite enhancing renal mass. Urinary bladder unremarkable, no hydronephrosis. Stomach/Bowel: Several sigmoid colon diverticula present. Vascular/Lymphatic: Notable atherosclerotic calcification, with some atheromatous plaque and mild mural thrombus in the abdominal aorta but without abdominal aortic aneurysm. There is evidence of deep vein thrombosis involving the left common femoral vein and potentially some tributaries. There is retrocrural, teddy hepatis/ peripancreatic, and retroperitoneal adenopathy. Index right retrocrural node 1.2 cm in short axis, image 131 series 3. Index peripancreatic node 1.8 cm in short axis, image 136 series 3. Index portacaval node 1.9 cm in short axis, image 150 series 3. Reproductive: Penile implant, reservoir to the right in the urinary bladder. Some irregular calcification along the reservoir margins. Other: Trace perihepatic and perisplenic ascites . Musculoskeletal: Stranding in the left after thigh likely related to the DVT. Disc bulge and left foraminal disc protrusion at L4-5 causing considerable left and mild right foraminal stenosis. There is disc bulge at the L3-4 level as well. Review of the MIP images confirms the above findings. IMPRESSION: 1. Left lower extremity deep vein thrombosis is observed without visible pulmonary embolus. Motion artifact mildly reduces sensitivity. 2. Multilobular left upper lobe lung mass with associated left hilar and mediastinal adenopathy, questionable left axillary adenopathy, scattered masses in the liver suspicious for hepatic metastatic disease, and bilateral adrenal nodules which are otherwise nonspecific. Nuclear medicine PET-CT may help in determining whether these adrenal and hepatic lesions are indeed metastatic. 3. There is also extensive upper abdominal adenopathy in the retroperitoneum, retrocrural region, and teddy hepatis. 4. Mild upper abdominal ascites, cause uncertain. 5. Left lower lobe atelectasis with abrupt truncation of the left lower lobe bronchus - tumor involvement of left lower lobe difficult to exclude. 6. Other imaging findings of potential clinical significance: Coronary, aortic arch, and branch vessel atherosclerotic vascular disease. Aortic valve prosthesis. Mild cardiomegaly. Small bilateral pleural effusions. Centrilobular emphysema. Bilateral airway thickening. Atrophic right kidney with multiple bilateral renal cysts. Lumbar spondylosis causing impingement at L4-5. Electronically Signed By: Cirilo Pacheco M.D. On: 11/09/2016 10:24 Electronically - Assessment (1) Acute on chronic respiratory failure Acute J96.20 - ACUTE AND CHR RESP FAILURE, UNSP W HYPOXIA OR HYPERCAPNIA Qualifiers: Respiratory failure complication: hypoxia Qualified Code(s): J96.21 - Acute and chronic respiratory failure with hypoxia Comment/Plan: Continue O2 nebs and pulmonary toilet. Monitor pulmonary status. (2) COPD exacerbation Acute J44.1 - CHRONIC OBSTRUCTIVE PULMONARY DISEASE W (ACUTE) EXACERBATION Comment/Plan: Continue nebulized bronchodilators mucolytics and steroids. (3) Lung mass Acute R91.8 - OTHER NONSPECIFIC ABNORMAL FINDING OF LUNG FIELD Comment/Plan : Results of CT chest abdomen and pelvis discussed with patient and his in details, copy provided for home records. Patient was advised that test shows left lung mass with metastatic spread to lymph nodes and liver, he was advised that this is lung cancer until proven otherwise. Currently awaiting biopsy. (4) Left leg DVT Acute I82.402 - ACUTE EMBOLISM AND THOMBOS UNSP DEEP VEINS OF L LOW EXTREM Qualifiers: Affected thrombotic vein of extremity: femoral Chronicity: acute Qualified Code(s): I82.412 - Acute embolism and thrombosis of left femoral vein Comment/Plan: Continue heparin (5) CAD (coronary artery disease) Acute I25.10 - ATHSCL HEART DISEASE OF [place] CORONARY ARTERY W/O ANG PCTRS Qualifiers: Coronary Disease-Associated Artery/Lesion type: [place] artery [place] vs. transplanted heart: [place] heart Associated angina: without angina Qualified Code(s): I25.10 - Atherosclerotic heart disease of [place] coronary artery without angina pectoris Comment/Plan: Stable on meds at low activity level (6) Bronchopneumonia Acute J18.0 - BRONCHOPNEUMONIA, UNSPECIFIED ORGANISM Comment/Plan: Continue antibiotics and aggressive pulmonary toilet (7) Dyslipidemia Acute E78.5 - HYPERLIPIDEMIA, UNSPECIFIED Comment/Plan: Continue statin Case Care Discussed with: Patient, Consultants, Family, Nursing Staff, Respiratory Therapy, Chemical Laboratory Technician Education/Counseling Given To: Patient Education/Counseling Given Regarding: Diagnosis, Treatment, Prognosis, Follow Up Total Time: 55 min . Critical Care: No Code: 19250 (12+)
[2016-11-09] MEDS: PRAVASTATIN 80 MG TABLET PO SCH (21:17)
[2016-11-09] MEDS: CEFTRIAXONE 1 GM in D5W 100 ML IV SCH (23:11)
[2016-11-09] MEDS: ALPRAZOLAM 0.5 MG TAB PO PRN (23:11)
[2016-11-10] MEDS: AZITHROMYCIN 500 MG in D5W 250 ML IV SCH (02:05)
[2016-11-10] MEDS: HEPARIN 500 ML IV SCH ×3 (02:43→19:54)
[2016-11-10 05:31] LABS: ABG Draw Site Left Radial; ALLEN'S TEST PASS; BEb 0.3 (+/- 2); TCO2 24.5 MMOL/L (23-27)
[2016-11-10 05:32] LABS: CPAP 12 cm H20
[2016-11-10] MEDS: REGULAR INSULIN 100 UNITS/ML - 3 ML VIAL SQ SCH ×4 (06:16→20:08)
[2016-11-10 06:24] LABS: AUTOMATED BASOPHIL 0.3 % (0-2); AUTOMATED EOSINOPHIL 0.9 % (0-5); AUTOMATED LYMPH 15.5 % (17-44); AUTOMATED MONOCYTE 6.5 % (3-10); AUTOMATED NEUTROPHIL 76.8 % (45-76); MPV 7.4 fL (7.4-10.4)
[2016-11-10 06:43] LABS: BLOOD UREA NITROGEN 29 MG/DL (9-20); CALCIUM 8.3 MG/DL (8.4-10.2); CALCULATED OSMOLALITY 267 MOs/Kg (270-290); CHLORIDE 103 mEq/L (98-107); GLUCOSE 181 mg/dL (70-99); SODIUM LEVEL 133 mEq/L (137-146)
[2016-11-10] MEDS: Albuterol/Ipratropium Neb 3 ML NEB NEB SCH ×3 (08:26→23:48)
[2016-11-10] MEDS: Verapamil 120 MG TAB PO SCH (08:38)
[2016-11-10] MEDS: FENOFIBRATE 145 MG TAB PO SCH (08:38)
[2016-11-10] MEDS: LOSARTAN POTASSIUM 50 MG TAB PO SCH (08:38)
[2016-11-10] MEDS: PREDNISONE 20 MG TAB PO SCH (08:38)
[2016-11-10] MEDS: OMEGA-3-ACID ETHYL ESTERS 1000 MG CAP PO SCH ×2 (08:38→17:34)
[2016-11-10] MEDS: FUROSEMIDE 20 MG TAB PO SCH (08:39)
[2016-11-10] MEDS: METOPROLOL TARTRATE 25 MG TAB PO SCH ×2 (08:39→20:07)
[2016-11-10] MEDS: OXYCODONE HCL 5 MG TABLET PO PRN ×2 (08:49→20:07)
--- NOTE | 2016-11-10 10:19 | GENMEDPROG ---
Subjective Note: Patient in bed responsive follows commands. Denies and difficulties breathing, reports occasion cough productive of small amount of foamy sputum no hemoptysis. No bleeding complications related to IV heparin. Left leg pain and swelling much improved. Notes Reviewed: Yes: Events from last night noted and discussed with Clinical Staff Current Medication List: Reviewed Currently: Reports: Wheezing, OLEARY, SOB, Sputum, Tobacco Use/Hx, Reflux Sx DVT Prophylaxis: Yes - Physical Examination Vital Signs and I&O: Last Vital Signs Temp 97.2 F L 11/10/16 05:01 Pulse 89 11/10/16 08:39 Resp 20 11/10/16 08:39 BP 113/57 L 11/10/16 08:39 Pulse Ox 96 11/10/16 08:39 Oxygen Pulse Oxygen Saturation 96 O2 Device Room Air Oxygen Flow Rate 2 Fraction of Inspired Oxygen ( 25 FIO2) Intake & Output 11/07/16 11/08/16 11/09/16 11/10/16 23:59 23:59 23:59 23:59 Intake Total 3387 3780 2087 Output Total 2525 2850 2300 Balance 862 930 -213 Patient's weight 95.39 kg 96.116 kg 99.881 kg 101.605 kg General: Alert, Oriented x3, Cooperative, No acute distress, Well appearing, Well nourished, Other (Normal and appropriate affect) HEENT: Normal, PERRLA, EOMI (Sclera white), Anicteric Sclera Neck: Normal Trachea alignment, Normal inspection, Limited range of motion Lymphatics: Normal (no adenopathy) Respiratory: Diminished, Rhonchi Cardiovascular: Regular rate, Normal S1, Normal S2, Murmurs GI: Normal bowel sounds, Soft, Non tender, No hepatospenomegaly, No masses Extremities/Musculoskeletal: Edema (Impressive edema in the left leg all the way up to the groin, seems a little better today. Sensation is intact, he has good capillary refill throughout his left lower extremity.), Other (left leg swelling) Skin: Warm,Dry and Intact, No rashes, No breakdown, No significant lesion Neurological: Normal speech, Normal tone, Cranial nerves 3-12 NL, Cranial Nerves (II-XII intact) Psych/Mental Status: Normal Affect (Fully oriented, Norla and appropriate affect ), Anxious Lab/DI/Studies Reviewed: Allergies levofloxacin [From Levaquin] Allergy (Verified 11/06/16 12:01) Nausea/Vomiting Last Vital Signs Temp 97.2 F L 11/10/16 05:01 Pulse 89 11/10/16 08:39 Resp 20 11/10/16 08:39 BP 113/57 L 11/10/16 08:39 Pulse Ox 96 11/10/16 08:39 11/10/16 06:05 11/10/16 06:05 - Assessment (1) Acute on chronic respiratory failure Acute J96.20 - ACUTE AND CHR RESP FAILURE, UNSP W HYPOXIA OR HYPERCAPNIA Qualifiers: Respiratory failure complication: hypoxia Qualified Code(s): J96.21 - Acute and chronic respiratory failure with hypoxia Comment/Plan: Continue O2 nebs and pulmonary toilet. Monitor pulmonary status. Wean off oxygen as tolerated, ABG from today showed stable oxygenation level (2) COPD exacerbation Acute J44.1 - CHRONIC OBSTRUCTIVE PULMONARY DISEASE W (ACUTE) EXACERBATION Comment/Plan: Continue nebulized bronchodilators mucolytics and steroids. (3) Lung mass Acute R91.8 - OTHER NONSPECIFIC ABNORMAL FINDING OF LUNG FIELD Comment/Plan : Again patient his were advised that this is cancer of the lung done to proven otherwise. For biopsy by intervention Radiology. (4) Left leg DVT Acute I82.402 - ACUTE EMBOLISM AND THOMBOS UNSP DEEP VEINS OF L LOW EXTREM Qualifiers: Affected thrombotic vein of extremity: femoral Chronicity: acute Qualified Code(s): I82.412 - Acute embolism and thrombosis of left femoral vein Comment/Plan: Continue heparin . Once biopsy is accomplished will institute oral agent (5) CAD (coronary artery disease) Acute I25.10 - ATHSCL HEART DISEASE OF [place] CORONARY ARTERY W/O ANG PCTRS Qualifiers: Coronary Disease-Associated Artery/Lesion type: [place] artery [place] vs. transplanted heart: [place] heart Associated angina: without angina Qualified Code(s): I25.10 - Atherosclerotic heart disease of [place] coronary artery without angina pectoris Comment/Plan: Stable on meds at low activity level (6) Bronchopneumonia Acute J18.0 - BRONCHOPNEUMONIA, UNSPECIFIED ORGANISM Comment/Plan: Continue antibiotics and aggressive pulmonary toilet (7) Dyslipidemia Acute E78.5 - HYPERLIPIDEMIA, UNSPECIFIED Comment/Plan: Continue statin Case Care Discussed with: Patient, Consultants, Family, Nursing Staff, Pleater Education/Counseling Given To: Patient Education/Counseling Given Regarding: Diagnosis, Treatment, Prognosis, Follow Up Total Time: 50 min . Critical Care: No Code: 77050 (12+)
[2016-11-10] MEDS ORDERED: LOSARTAN POTASSIUM 50 MG TAB PO SCH (11:00)
[2016-11-10] MEDS ORDERED: FUROSEMIDE 20 MG TAB PO SCH (11:00)
[2016-11-10] MEDS: PANTOPRAZOLE 40 MG TAB PO SCH (13:06)
[2016-11-10] MEDS: FUROSEMIDE 40 MG TAB PO SCH (13:07)
[2016-11-10] MEDS: LOSARTAN POTASSIUM 25 MG TAB PO SCH (13:07)
--- NOTE | 2016-11-10 16:10 | PCM.CCPN2 ---
Oncology/Hematology Progress Note: S: The patient is resting comfortably today and has no complaints at this time. His is by the bedside. They are wondering when the biopsy is going to take place. I did explain to the patient and his that we would be obtaining an MRI of the head and a bone scan to complete our staging process. He currently denies fever, chills, night sweats. No chest pain, cough, palpitations, shortness of breath. No significant abdominal pain, diarrhea, or constipation. He denies nausea and vomiting. O: VITALS: T-97.8, P-84, R-20, BP-105/52, Oxygen saturation-95%RA.GENERAL: Elderly gentleman, in no acute distress. HEENT: atraumatic normocephalic. Oropharynx is clear. Neck is supple. No lymphadenopathy. Sclera are anicteric. LUNGS: Diminished but clear to auscultation bilaterally. CARDIOVASCULAR: Regular rate and rhythm, no murmurs, rubs, or gallops. ABDOMEN: Soft, nontender , nondistended, no hepatosplenomegaly. LYMPH NODE SURVEY: No cervical, supraclavicular, axillary, or inguinal lymphadenopathy palpated. EXTREMITIES: No clubbing, cyanosis, or edema. NEURO: Grossly intact. LABORATORY DATA: Laboratory Last Values WBC 13.9 xk/uL (3.8-10.8) H 11/10/16 06:05 RBC 3.39 xM/uL (4.70-6.10) L 11/10/16 06:05 Hgb 8.8 g/dL (14.0-18.0) L 11/10/16 06:05 Hct 26.9 % (42-52) L 11/10/16 06:05 MCV 79 fL (80-94) L 11/10/16 06:05 MCH 25.8 pg (27-32) L 11/10/16 06:05 MCHC 32.5 g/dl (33-36) L 11/10/16 06:05 RDW 16.1 % (11.5-14.5) H 11/10/16 06:05 Plt Count 274 xk/uL (130-400) 11/10/16 06:05 MPV 7.4 fL (7.4-10.4) 11/10/16 06:05 Neut % (Auto) 76.8 % (45-76) H 11/10/16 06:05 Lymph % (Auto) 15.5 % (17-44) L 11/10/16 06:05 Boyle % (Auto) 6.5 % (3-10) 11/10/16 06:05 Eos % (Auto) 0.9 % (0-5) 11/10/16 06:05 Baso % (Auto) 0.3 % (0-2) 11/10/16 06:05 Absolute Neuts (auto) 10.56 xk/uL (1.7-8.2) H 11/10/16 06:05 Absolute Lymphs (auto) 2.09 xk/uL (0.65-4.75) 11/10/16 06:05 Retic Count (auto) 2.6 % (0.6-2.6) 11/07/16 06:22 PT 13.2 SEC (9.2-11.2) H 11/06/16 23:20 INR 1.3 11/06/16 23:20 APTT 45.0 SEC (22-35) H 11/10/16 14:01 Puncture Site Left radial 11/10/16 05:25 pH 7.460 pH UNITS (7.35-7.45) H 11/10/16 05:25 pCO2 33.0 mmHg (35-45) L 11/10/16 05:25 pO2 78.0 mmHg (80-100) L 11/10/16 05:25 HCO3 23.5 MMOL/L (22-26) 11/10/16 05:25 Total CO2 24.5 MMOL/L (23-27) 11/10/16 05:25 Base Excess 0.3 (+/- 2) 11/10/16 05:25 FiO2 % 25 11/10/16 05:25 CPAP 12 cm H20 11/10/16 05:25 Specimen Drawn By Alice 11/10/16 05:25 Sodium 133 mEq/L (137-146) L 11/10/16 06:05 Potassium 4.7 mEq/L (3.5-5.1) 11/10/16 06:05 Chloride 103 mEq/L (98-107) 11/10/16 06:05 Carbon Dioxide 26 mMOL/L (22-33) 11/10/16 06:05 Anion Gap 9 mEq/L (8-16) 11/10/16 06:05 BUN 29 MG/DL (9-20) H 11/10/16 06:05 Creatinine 1.20 MG/DL (0.66-1.25) 11/10/16 06:05 Estimated GFR (MDRD) > 60 mL/min (>=60) 11/10/16 06:05 Glucose 181 mg/dL (70-99) H 11/10/16 06:05 POC Capillary Glucose 417 mg/dL (70-99) H 11/10/16 16:55 Hemoglobin A1c 6.1 % (4.3-5.7) H 11/07/16 00:01 Calculated Osmolality 267 MOs/Kg (270-290) L 11/10/16 06:05 Calcium 8.3 MG/DL (8.4-10.2) L 11/10/16 06:05 Corrected Calcium 9.6 MG/DL (8.4-10.2) 11/06/16 12:41 Magnesium 2.20 MG/DL (1.6-2.3) 11/10/16 06:05 Iron 33.0 ug/dL (49-181) L 11/07/16 06:22 TIBC 368 ug/dL (261-462) 11/07/16 06:22 % Saturation 8.9 % (20-50) L 11/07/16 06:22 Rachel Transferrin Receptr 30.1 nmol/L (12.2-27.3) H 11/07/16 06:22 Ferritin 362.0 ng/mL (17.9-464) 11/07/16 06:22 Total Bilirubin 0.9 MG/DL (0.2-1.3) 11/06/16 12:41 AST 42 IU/L (17-59) 11/06/16 12:41 ALT 22 IU/L (21-72) 11/06/16 12:41 Alkaline Phosphatase 71 IU/L (50-160) 11/06/16 12:41 Troponin I 0.08 ng/mL (<.04) 11/06/16 12:41 Aof-D-Wkwdgqcfhfn Pept 435 pg/mL (0-900) 11/06/16 12:46 Total Protein 7.1 G/DL (6.3-8.2) 11/06/16 12:41 Albumin 3.1 G/DL (3.5-5.0) L 11/06/16 12:41 Carcinoembryonic Ag 64.9 ng/mL (0.0-4.7) H 11/07/16 06:22 Vitamin B12 > 1000 pg/mL (239-931) H 11/07/16 06:22 Serum Folate 5.72 ng/mL (>2.76) 11/07/16 06:22 TSH 0.91 uIU/mL (0.5-4.67) 11/07/16 06:22 Urine Color Yellow 11/07/16 05:25 Urine Clarity Clear 11/07/16 05:25 Urine pH 5.0 (5.0-8.0) 11/07/16 05:25 Ur Specific [place] 1.010 (1.003-1.035) 11/07/16 05:25 Urine Protein Neg (NEG/TRACE) 11/07/16 05:25 Urine Glucose (UA) Neg (NEGATIVE) 11/07/16 05:25 Urine Ketones Neg (NEGATIVE) 11/07/16 05:25 Urine Occult Blood 1+ (NEG/TRACE) H 11/07/16 05:25 Urine Nitrite Neg (NEGATIVE) 11/07/16 05:25 Urine Bilirubin Neg (NEGATIVE) 11/07/16 05:25 Urine Urobilinogen <2.0 MG/DL (0-1) 11/07/16 05:25 Ur Leukocyte Esterase Neg (NEGATIVE) 11/07/16 05:25 Urine RBC 0-2 (0-2) 11/07/16 05:25 Urine WBC 0-2 (0-2) 11/07/16 05:25 Ur Epithelial Cells Occ 11/07/16 05:25 Ur Random Microalbumin 4.2 ug/mL (Not Estab.) 11/07/16 05:25 Stool Occult Blood Neg (NEGATIVE) 11/07/16 10:08 A&P: This is a 71-year-old gentleman with stage IV bronchogenic carcinoma. He will be getting a biopsy on at 11:00 a.m.. Interventional will be targeting the liver lesion as it will be the easiest to obtain. To complete staging, we will obtain a brain MRI and bone scan before discharge. Once the patient is discharged, we will have him follow up in our clinic for pathology results and recommendations on treatment. The patient and his verbalized their understanding. We will continue following while he is hospitalized. Please call with questions or concerns.
--- NOTE | 2016-11-10 17:11 | DIRPT ---
CLINICAL DATA: New diagnosis lung cancer. Staging. 20 mL MultiHance IV EXAM: MRI HEAD WITHOUT AND WITH CONTRAST TECHNIQUE: Multiplanar, multiecho pulse sequences of the brain and surrounding structures were obtained without and with intravenous contrast. CONTRAST: MRI 12/21/2015 COMPARISON: None. FINDINGS: Moderate to advanced atrophy. Generalized ventricular enlargement. No change from the prior study. Extensive chronic microvascular ischemic change throughout the white matter bilaterally. Chronic ischemic changes in the mitul are extensive. Chronic ischemic changes in the cerebellum unchanged. Diffusion-weighted imaging shows a 3 mm area of restricted diffusion in the left superior cerebellum consistent with acute infarct. This area does not show enhancement and therefore not felt to be due to metastatic disease. Negative for intracranial hemorrhage Postcontrast imaging reveals no enhancing brain lesions. No leptomeningeal enhancement identified. There is an enhancing lesion in the left lateral pterygoid muscle. This shows restricted diffusion and diffuse enhancement and measures 26 x 21 mm. The muscle appeared normal on the prior MRI. This is felt to be due to metastatic disease to the muscle. No skull lesions identified. Paranasal sinuses clear. Normal orbit bilaterally. IMPRESSION: Atrophy and extensive chronic microvascular ischemia. 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 Enhancing mass lesion left lateral pterygoid muscle compatible with metastatic disease. No intracranial metastatic deposits identified. Electronically Signed By: Lg Mcknight M.D. On: 11/10/2016 17:08
[2016-11-10] MEDS: PRAVASTATIN 80 MG TABLET PO SCH (20:07)
[2016-11-11] MEDS: CEFTRIAXONE 1 GM in D5W 100 ML IV SCH (00:12)
[2016-11-11] MEDS: AZITHROMYCIN 500 MG in D5W 250 ML IV SCH (02:00)
[2016-11-11] MEDS: PANTOPRAZOLE 40 MG TAB PO SCH (04:34)
[2016-11-11 05:57] LABS: BLOOD UREA NITROGEN 34 MG/DL (9-20); CALCIUM 8.6 MG/DL (8.4-10.2); CALCULATED OSMOLALITY 265 MOs/Kg (270-290); CHLORIDE 99 mEq/L (98-107); GLUCOSE 201 mg/dL (70-99); SODIUM LEVEL 130 mEq/L (137-146)
[2016-11-11] MEDS: REGULAR INSULIN 100 UNITS/ML - 3 ML VIAL SQ SCH ×4 (06:15→20:56)
[2016-11-11] MEDS: Albuterol/Ipratropium Neb 3 ML NEB NEB SCH ×3 (07:47→23:10)
[2016-11-11] MEDS ORDERED: [UNRECOGNIZED DRUG - OTHER] IV ONE (08:28)
[2016-11-11] MEDS: PREDNISONE 20 MG TAB PO SCH (08:41)
[2016-11-11] MEDS: OMEGA-3-ACID ETHYL ESTERS 1000 MG CAP PO SCH ×2 (08:41→17:49)
[2016-11-11] MEDS: LOSARTAN POTASSIUM 25 MG TAB PO SCH (08:41)
[2016-11-11] MEDS: METOPROLOL TARTRATE 25 MG TAB PO SCH ×2 (08:41→20:58)
[2016-11-11] MEDS: FUROSEMIDE 40 MG TAB PO SCH (08:41)
[2016-11-11] MEDS: FENOFIBRATE 145 MG TAB PO SCH (08:42)
[2016-11-11] MEDS: Verapamil 120 MG TAB PO SCH (08:42)
[2016-11-11] MEDS: HEPARIN 500 ML IV SCH (10:28)
--- NOTE | 2016-11-11 13:59 | PCM.SURGCO ---
Consultation Date: 11/11/16 Requesting Physician: Jenni Chadwick Inside Sales Account Executive: Samuel Florentino Consult Reason: Poor Venous Access - History of Present Illness The patient is a very unfortunate 71-year-old male who had come to the emergency room with swelling of his left leg. He had been found to have extensive deep venous thrombosis and placed on anticoagulation. During his workup it was found that he had multiple metastatic lesions likely from lung cancer with a large lesion noted in the lung with compression atelectasis. He is due to get a biopsy of the liver lesion tomorrow. He is going to be office heparin for that and we have been asked to see him if possibly he would need a port for chemotherapy. In discussion with Dr. Chadwick he would not start chemotherapy until at least next week. It is unsure whether he has an adequate candidate for chemotherapy at this point. Chief Complaint: leg pain - Past Medical and Surgical History Cardiac History: Reports: Hypertension, Hypercholesterolemia, Valvular Heart Disease (Aortic valve replacement 2011 [facility].) Respiratory History: Reports: COPD, Other (Obstructive sleep apnea.) GI/ History: Reports: Renal Disease (Stage III.). Denies: Liver Failure Systemic History: Reports: Diabetes (Type 2 on insulin.). Denies: Hypothyroidism Musculoskeletal History: Reports: No Significant History. Denies: Arthritis, Rheumatoid Arthritis Psychological History: Reports: No Significant History. Denies: Depression, Anxiety, Substance Use Disorder Neurological History: Reports: No Significant History. Denies: Cerebrovascular Accident, Seizures Past Surgical History: Reports: Appendectomy, Tonsillectomy/Adnoidectomy, Other (Valve replacement. Hemorrhoid surgery) Allergies levofloxacin [From Levaquin] Allergy (Verified 11/06/16 12:01) Nausea/Vomiting Home Medications Albuterol Sulfate [Proair Hfa] 1 - 2 puff INH Q4-6H PRN 11/06/16 Amitriptyline HCl 25 mg PO QHS PRN 11/06/16 Aspirin (Enteric Coated) [Ecotrin] 81 mg PO DAILY 11/06/16 Clopidogrel Bisulfate [Plavix] 75 mg PO DAILY 11/06/16 Fenofibrate 160 mg PO DAILY 11/06/16 Furosemide [Lasix] 20 mg PO DAILY 11/06/16 Insulin Regular, Human [Humulin R] 8 unit SQ .TID SLIDING SCALE 11/06/16 Insulin Regular, Human [Humulin R] 8 unit SQ 2000 PRN 11/06/16 Liraglutide [Victoza 0.6 mg/0.1 ml] 1.8 mg SQ .QPM 11/06/16 Losartan Potassium 50 mg PO DAILY 11/06/16 [place]-3/Dha/Epa/Fish Oil [Fish Oil 1,400 mg Softgel] 1 cap PO BID 11/06/16 Pravastatin [Pravachol] 80 mg PO QHS 11/06/16 Promethazine [Phenergan] 25 mg PO Q8H PRN 11/06/16 Super Beta Prostate 2 tab PO .QPM 11/06/16 Verapamil HCl [Verapamil ER] 120 mg PO DAILY 11/06/16 - Social History Travel Outside of [place] in the Last 3 Months?: No Lives: With Family Smoking Status: Heavy tobacco smoker (5 or more cigarettes/day or daily pipe/ cigar) Social History: Denies: Alcohol Use, Other Substance Use - Family History Reports: Diabetes (Brother), Cancer (Father: prostate.), Cardiac Disorders ( Mother, but lived to 89yo.), Other (Brother: glaucoma. DVT IN 1 LEG.) - Review of Systems Constitutional: Weight loss. negative: Chills, Fever Eyes: No Symptoms Reported. negative: Blurred Vision, Double Vision Ears: No Symptoms Reported. negative: Drainage, Hearing Loss Nose: No Symptoms Reported. negative: Abrasion, Bleeding Mouth: No Symptoms Reported. negative: Pain, Tooth Pain Throat/Neck: No Symptoms Reported. negative: Pain, Hoarseness Respiratory: Cough, Shortness of Breath, Wheezing Cardiovascular: No Symptoms Reported. negative: Chest Pain, Cyanosis Gastrointestinal: No Symptoms Reported. negative: Nausea, Vomiting Genitourinary: No Symptoms Reported. negative: Bleeding, Dysuria Neurological: No Symptoms Reported. negative: Dizziness, Gait Difficulty Musculoskeletal:: Muscle Pain, Swelling Integumentary: No Symptoms Reported. negative: Bruising, Itching Allergic/Immunologic: No Symptoms Reported. negative: Hives, Itching Hematologic: No Symptoms Reported. negative: Lymphadenopathy, Anemia Endocrine: Weight Loss. negative: Weight Gain Psychiatric: No Symptoms Reported. negative: Anxiety, Depression, Insomnia - Physical Exam Vital Signs: Initial Vitals Temperature 97.8 F 11/06/16 12:01 Pulse Rate 114 11/06/16 12:01 Respiratory Rate 20 11/06/16 12:01 Blood Pressure 134/61 11/06/16 12:01 Pulse Oxygen Saturation 98 11/06/16 12:01 Constitutional: No apparent distress, Alert Oriented to: Time, Person, Place - HEENT Head: Normal. negative: Abrasion, Swelling Eye: Normal. negative: Edema, Scleral Icterus Oropharynx: Normal. negative: Exudate, Red ENT EAC: Normal. negative: Blood TMJ: Normal. negative: Crepitance, Tender Nose: No Symptoms Reported. negative: Abrasion, Bleeding Respiratory: Diminished, Rhonchi. negative: Wheezes Cardiovascular: Normal. negative: Tachycardia - GI Auscultation: Normal. negative: Bruit Palpation: Normal. negative: Enlarged liver, Enlarged spleen Tenderness: Non tender Perez's Sign: Negative Rectal Exam: Deferred - Exam Deferred: Yes - Musculoskeletal Back: Normal. negative: Abrasion, Ecchymosis Extremities: Calf Tenderness, Edema. negative: Clubbing, Cyanosis Spine: non-tender, normal alignment - Integumentary Skin: Normal. negative: Clammy, Diaphoretic Lymphatics: Normal. negative: Adenopathy, Tender - Neurologic Memory Impaired: Normal Motor Function: Normal Cranial Nerve: Normal Cerebellar: Normal Mood Description: Normal Thought: Coherent Perception: Normal - Lab Results 11/10/16 06:05 11/11/16 05:25 - Assessment/Plan (1) Left leg DVT I82.402 - ACUTE EMBOLISM AND THOMBOS UNSP DEEP VEINS OF L LOW EXTREM Acute femoral acute I82.412 - Acute embolism and thrombosis of left femoral vein Comment: Needs to continue anticoagulation as this is his main symptoms. 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 Await findings. (3) Poor intravenous access Z78.9 - OTHER SPECIFIED HEALTH STATUS Acute Comment: Will need port if undergoes chemo if candidate. Await biopsy results and discission on chemo prior to placing port. D/W Dr. Chadwick.
--- NOTE | 2016-11-11 14:10 | DIRPT ---
CLINICAL DATA: New diagnosis of lung carcinoma EXAM: NUCLEAR MEDICINE WHOLE BODY BONE SCAN TECHNIQUE: Whole body anterior and posterior images were obtained approximately 3 hours after intravenous injection of radiopharmaceutical. RADIOPHARMACEUTICALS: 24.2 mCi Technetium-99m MDP IV COMPARISON: 11/09/2016 FINDINGS: There is adequate uptake of radioactive tracer throughout the bony skeleton. Bilateral renal activity is noted. The left kidney is somewhat hypertrophied with respect to the right. A single focus of increased activity is noted in the left half of the sternum in its midportion. Correlation with recent CT examination shows changes of median sternotomy as well as prior mid sternal fracture. No definitive sclerotic changes to suggest metastatic disease are noted. No other foci of increased activity to suggest metastatic disease is seen. IMPRESSION: Single focus of increased activity likely related to prior median sternotomy as well as an underlying sternal fracture with healing. No definitive metastatic disease is noted. Electronically Signed By: Zackery Knott M.D. On: 11/11/2016 14:07
--- NOTE | 2016-11-11 18:41 | GENMEDPROG ---
Subjective Note: Patient in bed responsive follows commands. Still coughing producing small amount of sputum but no hemoptysis. No bleeding complications related to heparin infusion. Tolerating diet Notes Reviewed: Yes: Events from last night noted and discussed with Clinical Staff Current Medication List: Reviewed Currently: Reports: Wheezing, OLEARY, SOB, Sputum, Tobacco Use/Hx, Reflux Sx DVT Prophylaxis: Yes - Physical Examination Vital Signs and I&O: Last Vital Signs Temp 98.1 F 11/11/16 15:40 Pulse 90 11/11/16 16:00 Resp 18 11/11/16 15:40 BP 126/57 L 11/11/16 15:40 Pulse Ox 94 11/11/16 15:40 Oxygen Pulse Oxygen Saturation 94 O2 Device Nasal Cannula Oxygen Flow Rate 2 Fraction of Inspired Oxygen ( 30 FIO2) Intake & Output 11/08/16 11/09/16 11/10/16 11/11/16 23:59 23:59 23:59 23:59 Intake Total 3780 2087 1117 2552 Output Total 2850 2300 2975 3870 Balance 870 -789 -7550 -3912 Patient's weight 96.116 kg 99.881 kg 101.605 kg 100.272 kg General: Alert, Oriented x3, Cooperative, No acute distress, Well appearing, Well nourished, Other (Normal and appropriate affect) HEENT: Normal, PERRLA, EOMI (Sclera white), Anicteric Sclera Neck: Normal Trachea alignment, Normal inspection, Limited range of motion Lymphatics: Normal (no adenopathy) Respiratory: Diminished, Rhonchi Cardiovascular: Regular rate, Normal S1, Normal S2, Murmurs GI: Normal bowel sounds, Soft, Non tender, No hepatospenomegaly, No masses Extremities/Musculoskeletal: Edema (Impressive edema in the left leg all the way up to the groin, seems a little better today. Sensation is intact, he has good capillary refill throughout his left lower extremity.), Other (left leg swelling) Skin: Warm,Dry and Intact, No rashes, No breakdown, No significant lesion Neurological: Normal speech, Normal tone, Cranial nerves 3-12 NL, Cranial Nerves (II-XII intact) Psych/Mental Status: Normal Affect (Fully oriented, [place] and appropriate affect ), Anxious Lab/DI/Studies Reviewed: Allergies levofloxacin [From Levaquin] Allergy (Verified 11/06/16 12:01) Nausea/Vomiting 11/10/16 06:05 11/11/16 05:25 Patient Name: RAFA JACKSON LOC: PCU : 1945 AGE: 71 Order Date:11/10/16 Date of Service:05/20 Report # [id number] Ord Physician: Julia Curtis PART[employer] PL[employer] SALES CONSULTANT Exam # [id number] Emergency Physician: Meera Chavez MD Exam(s): [id number] NM/NM BONE WHOLE BODY CLINICAL DATA: New diagnosis of lung carcinoma EXAM: NUCLEAR MEDICINE WHOLE BODY BONE SCAN TECHNIQUE: Whole body anterior and posterior images were obtained approximately 3 hours after intravenous injection of radiopharmaceutical. RADIOPHARMACEUTICALS: 24.2 mCi Technetium-99m MDP IV COMPARISON: 11/09/2016 FINDINGS: There is adequate uptake of radioactive tracer throughout the bony skeleton. Bilateral renal activity is noted. The left kidney is somewhat hypertrophied with respect to the right. A single focus of increased activity is noted in the left half of the sternum in its midportion. Correlation with recent CT examination shows changes of median sternotomy as well as prior mid sternal fracture. No definitive sclerotic changes to suggest metastatic disease are noted. No other foci of increased activity to suggest metastatic disease is seen. IMPRESSION: Single focus of increased activity likely related to prior median sternotomy as well as an underlying sternal fracture with healing. No definitive metastatic disease is noted. Electronically Signed By: Zackery Knott M.D. On: 11/11/2016 14:07 Electronically Signed By: Zackery Knott MD Electronically Signed Date/Time: [id number] Dictate Date/Time: 11/11/16 1359 Patient Name: RAFA JACKSON LOC: PCU : 1945 AGE: 71 Order Date:11/10/16 Date of Service:04/19 Report # [id number] Ord Physician: Julia Curtis [employer] PL[employer] SALES CONSULTANT Exam # [id number] Emergency Physician: Meera Chavez MD Exam(s): [id number] MRI/MRI HEAD WITH WITHOUT CM CLINICAL DATA: New diagnosis lung cancer. Staging. 20 mL MultiHance IV EXAM: MRI HEAD WITHOUT AND WITH CONTRAST TECHNIQUE: Multiplanar, multiecho pulse sequences of the brain and surrounding structures were obtained without and with intravenous contrast. CONTRAST: MRI 12/21/2015 COMPARISON: None. FINDINGS: Moderate to advanced atrophy. Generalized ventricular enlargement. No change from the prior study. Extensive chronic microvascular ischemic change throughout the white matter bilaterally. Chronic ischemic changes in the mitul are extensive. Chronic ischemic changes in the cerebellum unchanged. Diffusion-weighted imaging shows a 3 mm area of restricted diffusion in the left superior cerebellum consistent with acute infarct. This area does not show enhancement and therefore not felt to be due to metastatic disease. Negative for intracranial hemorrhage Postcontrast imaging reveals no enhancing brain lesions. No leptomeningeal enhancement identified. There is an enhancing lesion in the left lateral pterygoid muscle. This shows restricted diffusion and diffuse enhancement and measures 26 x 21 mm. The muscle appeared normal on the prior MRI. This is felt to be due to metastatic disease to the muscle. No skull lesions identified. Paranasal sinuses clear. Normal orbit bilaterally. IMPRESSION: Atrophy and extensive chronic microvascular ischemia. 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 Enhancing mass lesion left lateral pterygoid muscle compatible with metastatic disease. No intracranial metastatic deposits identified. Electronically Signed By: Lg Mcknight M.D. On: 11/10/2016 17:08 - Assessment (1) Acute on chronic respiratory failure Acute J96.20 - ACUTE AND CHR RESP FAILURE, UNSP W HYPOXIA OR HYPERCAPNIA Qualifiers: Respiratory failure complication: hypoxia Qualified Code(s): J96.21 - Acute and chronic respiratory failure with hypoxia Comment/Plan: Continue O2 nebs and pulmonary toilet. Monitor pulmonary status. Wean off oxygen as tolerated, ABG from today showed stable oxygenation level (2) COPD exacerbation Acute J44.1 - CHRONIC OBSTRUCTIVE PULMONARY DISEASE W (ACUTE) EXACERBATION Comment/Plan: Continue nebulized bronchodilators mucolytics and steroids. (3) Lung mass Acute R91.8 - OTHER NONSPECIFIC ABNORMAL FINDING OF LUNG FIELD Comment/Plan : Again patient his were advised that this is cancer of the lung done to proven otherwise. For biopsy by intervention Radiology in the morning (4) Left leg DVT Acute I82.402 - ACUTE EMBOLISM AND THOMBOS UNSP DEEP VEINS OF L LOW EXTREM Qualifiers: Affected thrombotic vein of extremity: femoral Chronicity: acute Qualified Code(s): I82.412 - Acute embolism and thrombosis of left femoral vein Comment/Plan: Continue heparin . Once biopsy is accomplished will institute oral agent (5) CAD (coronary artery disease) Acute I25.10 - ATHSCL HEART DISEASE OF [place] CORONARY ARTERY W/O ANG PCTRS Qualifiers: Coronary Disease-Associated Artery/Lesion type: [place] artery [place] vs. transplanted heart: [place] heart Associated angina: without angina Qualified Code(s): I25.10 - Atherosclerotic heart disease of [place] coronary artery without angina pectoris Comment/Plan: Stable on meds at low activity level (6) Bronchopneumonia Acute J18.0 - BRONCHOPNEUMONIA, UNSPECIFIED ORGANISM Comment/Plan: Continue antibiotics and aggressive pulmonary toilet (7) Dyslipidemia Acute E78.5 - HYPERLIPIDEMIA, UNSPECIFIED Comment/Plan: Continue statin Case Care Discussed with: Patient, Consultants, Family, Nursing Staff, Wallpaper Installer Education/Counseling Given To: Patient Education/Counseling Given Regarding: Diagnosis, Treatment, Prognosis, Follow Up Total Time: 50 min .
--- NOTE | 2016-11-11 19:55 | PCM.CCPN2 ---
Oncology/Hematology Progress Note: Hematology/oncology Subjective: This is a 71-year-old man with multiple comorbidities who was admitted with extensive deep venous thrombosis of in his entire left lower extremity. He is on IV heparin but was found to have a lung mass as well as liver lesions and we suspect stage IV bronchogenic carcinoma. He will be scheduled for a biopsy of the liver lesion tomorrow. 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 He is very weak and dyspneic, but denies pain. Objective: Last Vital Signs Temp 98.2 F 11/11/16 19:30 Pulse 93 11/11/16 19:30 Resp 18 11/11/16 19:30 BP 125/55 L 11/11/16 19:30 Pulse Ox 94 11/11/16 19:30 This is a large white male who appears chronically ill. HEENT: pupils are equal , round, reactive to light. Sclera are nonicteric. Mucous membranes are dry. Posterior pharynx is benign. No thyromegaly. No adenopathy is palpated in the cervical, clavicular, axillary or inguinal areas. Lungs are clear to auscultation and percussion. Heart has a regular rate and rhythm with no murmurs or gallops. Abdomen is soft, no masses, no hepatosplenomegaly or tenderness. The left lower extremity still has 2+ edema. Neurologic exam is grossly intact. Laboratory Results - last 24 hr 11/10/16 11/11/16 11/11/16 19:53 05:25 05:25 APTT 76.5 H Sodium 130 L Potassium 4.7 Chloride 99 Carbon Dioxide 26 Anion Gap 10 BUN 34 H Creatinine 1.10 Estimated GFR (MDRD) > 60 Glucose 201 H POC Capillary Glucose 388 H Calculated Osmolality 265 L Calcium 8.6 11/11/16 11/11/16 11/11/16 06:02 11:32 15:15 APTT 83.7 H Sodium Potassium Chloride Carbon Dioxide Anion Gap BUN Creatinine Estimated GFR (MDRD) Glucose POC Capillary Glucose 197 H 175 H Calculated Osmolality Calcium 11/11/16 16:36 APTT Sodium Potassium Chloride Carbon Dioxide Anion Gap BUN Creatinine Estimated GFR (MDRD) Glucose POC Capillary Glucose 356 H Calculated Osmolality Calcium Bone scan does not show any evidence of bony metastases. Impression and recommendations: This is a patient who appears to have stage IV lung cancer but we still need a tissue diagnosis. I would like to do PD L1 testing once we have pathology to see if he might be a candidate for immunotherapy rather than chemotherapy. I have asked him whether he would want to try chemotherapy as radiation or surgery are not really options given his stage of disease. He asked me the prognosis and is not sure but thinks he would want to try treatment and so I will consult Dr. Samuel Florentino to discuss port placement. We may need to wait and see what his performance status is after his hospital stay is optimized, to see if he is even capable of tolerating treatment. I have discussed this with Dr. Florentino as well as the patient and his and will continue to follow along with you.
[2016-11-11] MEDS: PRAVASTATIN 80 MG TABLET PO SCH (20:58)
[2016-11-12] MEDS: ALPRAZOLAM 0.5 MG TAB PO PRN ×2 (01:55→11:08)
[2016-11-12] MEDS: HEPARIN 500 ML IV SCH ×2 (02:01→13:08)
[2016-11-12 05:29] LABS: BLOOD UREA NITROGEN 34 MG/DL (9-20); CALCIUM 8.8 MG/DL (8.4-10.2); CALCULATED OSMOLALITY 266 MOs/Kg (270-290); CHLORIDE 96 mEq/L (98-107); GLUCOSE 158 mg/dL (70-99); SODIUM LEVEL 132 mEq/L (137-146)
[2016-11-12] MEDS: REGULAR INSULIN 100 UNITS/ML - 3 ML VIAL SQ SCH ×4 (06:04→21:19)
[2016-11-12] MEDS: PANTOPRAZOLE 40 MG TAB PO SCH (06:04)
[2016-11-12] MEDS: Albuterol/Ipratropium Neb 3 ML NEB NEB SCH ×2 (08:46→14:31)
[2016-11-12 09:30] LABS: PT-INR 1.1
[2016-11-12] MEDS: LOSARTAN POTASSIUM 25 MG TAB PO SCH (09:30)
[2016-11-12] MEDS: METOPROLOL TARTRATE 25 MG TAB PO SCH ×2 (09:30→21:20)
[2016-11-12] MEDS: Verapamil 120 MG TAB PO SCH (09:30)
[2016-11-12 09:43] LABS: ALLEN'S TEST PASS; BEb 5.1 (+/- 2); TCO2 28.8 MMOL/L (23-27)
[2016-11-12 09:45] LABS: ABG Draw Site Left Radial
[2016-11-12] MEDS ORDERED: NALOXONE 0.4 MG/ML AMPULE ONE (09:47)
[2016-11-12] MEDS ORDERED: FLUMAZENIL 0.1 MG/ML INJ 5 ML VIAL IV ONE (09:47)
[2016-11-12] MEDS ORDERED: GELATIN 1 SPO SPO TOP ONE (09:47)
[2016-11-12] MEDS ORDERED: MIDAZOLAM 2 MG/2 ML VIAL ONE (09:47)
[2016-11-12] MEDS ORDERED: FENTANYL 100 MCG/2 ML VIAL ONE (09:47)
[2016-11-12] MEDS ORDERED: LIDOCAINE 1% 5 ML (METHYLPARABEN FREE) ONE (09:47)
[2016-11-12] MEDS ORDERED: SODIUM CHLORIDE 0.9% 10 ML FLUSH FLUSH ONE (09:48)
[2016-11-12] MEDS ORDERED: FUROSEMIDE 40 MG/4 ML VIAL IV ONE (10:30)
[2016-11-12] MEDS: PREDNISONE 20 MG TAB PO SCH (12:56)
[2016-11-12] MEDS: FUROSEMIDE 40 MG TAB PO SCH (12:56)
[2016-11-12] MEDS: OMEGA-3-ACID ETHYL ESTERS 1000 MG CAP PO SCH ×2 (12:56→17:05)
[2016-11-12] MEDS: FENOFIBRATE 145 MG TAB PO SCH (12:56)
[2016-11-12] MEDS ORDERED: Medication Special Instructions SCH (13:00)
--- NOTE | 2016-11-12 17:36 | PMOFOLLOWU ---
Medical Oncology Follow-Up Date of Service:: 11/12/16 Medical Oncology Follow-Up Note: HISTORY OF PRESENT ILLNESS: This is a 71-year-old man with a massive deep venous thrombosis of the left lower extremity was also found to have a large left lung mass. CT scan of the abdomen confirms multiple liver lesions and I have reviewed the CT scan images with the patient 's today. 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 MRI is negative for any parenchymal brain metastases. I discussed the possibility of a port placement with Dr. Florentino and his concern is whether the patient will really be well enough to tolerate treatment. I feel this is a very valid point and have discussed it openly with the patient 's . She is in agreement with giving it some time to see if he does stabilize before placing a venous access. He will have his biopsy today but it was delayed because they were unable to perform and under ultrasound guidance. The patient is somewhat lethargic at present and feels quite poorly. PHYSICAL EXAMINATION: Last Vital Signs Temp 97.5 F 11/12/16 15:55 Pulse 106 11/12/16 16:29 Resp 22 11/12/16 15:55 BP 114/55 L 11/12/16 15:55 Pulse Ox 92 11/12/16 15:55 This is a large white male with a depressed affect.HEENT: pupils are equal, round, reactive to light. Sclera are nonicteric. Posterior pharynx is benign. No thyromegaly. No adenopathy is palpated in the cervical, clavicular, axillary or inguinal areas. Lungs are clear to auscultation and percussion. Heart has a regular rate and rhythm with tachycardia. Abdomen is soft, no masses, no hepatosplenomegaly or tenderness. Extremities reveal significant edema of the left leg. Neurologic exam is grossly intact. LABORATORY DATA: Laboratory Results - last 24 hr 11/11/16 11/11/16 11/11/16 20:14 20:15 22:25 PT INR APTT 94.1 H* Puncture Site pH pCO2 pO2 HCO3 Total CO2 Base Excess FiO2 % Specimen Drawn By Sodium Potassium Chloride Carbon Dioxide Anion Gap BUN Creatinine Estimated GFR (MDRD) Glucose POC Capillary Glucose 416 H 417 H Calculated Osmolality Calcium 11/12/16 11/12/16 11/12/16 04:45 04:45 04:45 PT 11.6 H INR 1.1 APTT 26.9 Puncture Site pH pCO2 pO2 HCO3 Total CO2 Base Excess FiO2 % Specimen Drawn By Sodium 132 L Potassium 4.4 Chloride 96 L Carbon Dioxide 30 Anion Gap 10 BUN 34 H Creatinine 1.30 H Estimated GFR (MDRD) 55 L Glucose 158 H POC Capillary Glucose Calculated Osmolality 266 L Calcium 8.8 11/12/16 11/12/16 11/12/16 05:51 09:39 11:13 PT INR APTT Puncture Site Left radial pH 7.520 H pCO2 34.0 L pO2 55.0 L HCO3 27.8 H Total CO2 28.8 H Base Excess 5.1 H FiO2 % 2 lpm nc Specimen Drawn By [place] Sodium Potassium Chloride Carbon Dioxide Anion Gap BUN Creatinine Estimated GFR (MDRD) Glucose POC Capillary Glucose 192 H 230 H Calculated Osmolality Calcium 11/12/16 16:08 PT INR APTT Puncture Site pH pCO2 pO2 HCO3 Total CO2 Base Excess FiO2 % Specimen Drawn By Sodium Potassium Chloride Carbon Dioxide Anion Gap BUN Creatinine Estimated GFR (MDRD) Glucose POC Capillary Glucose 243 H Calculated Osmolality Calcium ASSESSMENT AND PLAN: This is a patient with stage IV lung cancer newly diagnosed with associated deep venous thrombosis of the left lower extremity. His prognosis is poor and I have informed the patient and that chemotherapy would be palliative only and not curative in nature. His is concerned that he is giving up. We will be waiting on the biopsy results and I suggested that he have home physical therapy and home health nurses when he is discharged. I can then see him back in the next week or 2 to see if his performance status has improved at all and whether he will truly be capable or willing to pursue chemotherapy. I have had a aung discussion with his today and she does understand his poor prognosis. She absolutely wants to bring him home and care for him there.
--- NOTE | 2016-11-12 19:46 | PCM.SURGRO ---
- Subjective Patient: Reports: No new complaints, Feels better - Objective / Physical Exam Vital Signs: Temperature: 97.5 F (11/12/16 15:55) HR: 96 (11/12/16 17:35)RR: 22 (11/12/16 15: 55) BP: 114/55 (11/12/16 15:55)Pulse Ox: 92 (11/12/16 15:55) General: Alert, Cooperative HEENT: Normal, PERRLA, EOMI Respiratory: Diminished, Rhonchi Cardiovascular: Regular rate, Regular rate and rhythm Gastrointestinal: Soft, Bowel Sounds. negative: Distended, Tender Back: Normal. negative: Abrasion, Ecchymosis Extremities: Swelling (Improved.), Edema. negative: Clubbing, Cyanosis Psych/Mental Status: Appropriate, Cooperative Neurological: Strength at 5/5 X4 ext, Cranial nerves 3-12 NL Skin: Warm,Dry and Intact, No rashes, No breakdown Lymphatics: Normal. negative: Adenopathy, Tender - Assessment and Plan (1) Left leg DVT Acute I82.402 - ACUTE EMBOLISM AND THOMBOS UNSP DEEP VEINS OF L LOW EXTREM femoral acute I82.412 - Acute embolism and thrombosis of left femoral vein Comment/Plan: Continue anticoagulation. (2) Neoplasm of uncertain behavior of lung Acute D38.1 - NEOPLASM OF UNCERTAIN BEHAVIOR OF [place], [place] AND LUNG Present on Admission: Yes Comment/Plan: Biopsy today. (3) Poor intravenous access Acute Z78.9 - OTHER SPECIFIED HEALTH STATUS Comment/Plan: Will place port if able to tolerate chemo.
--- NOTE | 2016-11-12 19:59 | GENMEDPROG ---
Subjective Note: Patient in bed responsive follows commands. Reports occasion cough productive foamy sputum no hemoptysis. Generally weak tired and fatigued denies any headache blurring or double vision. Notes Reviewed: Yes: Events from last night noted and discussed with Clinical Staff Current Medication List: Reviewed Currently: Reports: Wheezing, OLEARY, SOB, Sputum, Tobacco Use/Hx, Reflux Sx DVT Prophylaxis: Yes - Physical Examination Vital Signs and I&O: Last Vital Signs Temp 97.5 F 11/12/16 19:53 Pulse 78 11/12/16 19:53 Resp 22 11/12/16 19:53 BP 106/50 L 11/12/16 19:53 Pulse Ox 93 11/12/16 19:53 Oxygen Pulse Oxygen Saturation 93 O2 Device Nasal Cannula Oxygen Flow Rate 3 Fraction of Inspired Oxygen ( 25 FIO2) Intake & Output 11/09/16 11/10/16 11/11/16 11/12/16 23:59 23:59 23:59 23:59 Intake Total 2087 1117 2552 220 Output Total 2300 2975 4570 2120 Balance - Patient's weight 99.881 kg 101.605 kg 100.272 kg 99.932 kg General: Alert, Cooperative HEENT: Normal, PERRLA, EOMI Lymphatics: Normal. negative: Adenopathy, Tender Respiratory: Diminished, Rhonchi Cardiovascular: Regular rate, Regular rate and rhythm Extremities/Musculoskeletal: Swelling (Improved.), Edema. negative: Clubbing, Cyanosis Skin: Warm,Dry and Intact, No rashes, No breakdown Psych/Mental Status: Appropriate, Cooperative - Assessment (1) Acute on chronic respiratory failure Acute J96.20 - ACUTE AND CHR RESP FAILURE, UNSP W HYPOXIA OR HYPERCAPNIA Qualifiers: Respiratory failure complication: hypoxia Qualified Code(s): J96.21 - Acute and chronic respiratory failure with hypoxia Comment/Plan: Continue O2 nebs and pulmonary toilet. Monitor pulmonary status. Wean off oxygen as tolerated, ABG from today showed stable oxygenation level (2) COPD exacerbation Acute J44.1 - CHRONIC OBSTRUCTIVE PULMONARY DISEASE W (ACUTE) EXACERBATION Comment/Plan: Continue nebulized bronchodilators mucolytics and steroids. (3) Lung mass Acute R91.8 - OTHER NONSPECIFIC ABNORMAL FINDING OF LUNG FIELD Comment/Plan : Again patient his were advised that this is cancer of the lung done to proven otherwise. For biopsy by intervention Radiology in the morning (4) Left leg DVT Acute I82.402 - ACUTE EMBOLISM AND THOMBOS UNSP DEEP VEINS OF L LOW EXTREM Qualifiers: Affected thrombotic vein of extremity: femoral Chronicity: acute Qualified Code(s): I82.412 - Acute embolism and thrombosis of left femoral vein Comment/Plan: Continue heparin . Once biopsy is accomplished will institute oral agent (5) CAD (coronary artery disease) Acute I25.10 - ATHSCL HEART DISEASE OF [place] CORONARY ARTERY W/O ANG PCTRS Qualifiers: Coronary Disease-Associated Artery/Lesion type: [place] artery [place] vs. transplanted heart: [place] heart Associated angina: without angina Qualified Code(s): I25.10 - Atherosclerotic heart disease of [place] coronary artery without angina pectoris Comment/Plan: Stable on meds at low activity level (6) Bronchopneumonia Acute J18.0 - BRONCHOPNEUMONIA, UNSPECIFIED ORGANISM Comment/Plan: Continue antibiotics and aggressive pulmonary toilet (7) Dyslipidemia Acute E78.5 - HYPERLIPIDEMIA, UNSPECIFIED Comment/Plan: Continue statin
[2016-11-12] MEDS: CEFTRIAXONE 1 GM in D5W 100 ML IV SCH ×3 (21:18)
[2016-11-12] MEDS: PRAVASTATIN 80 MG TABLET PO SCH (21:20)
[2016-11-13] MEDS: Albuterol/Ipratropium Neb 3 ML NEB NEB SCH ×4 (01:37→23:17)
[2016-11-13 01:44] LABS: BLOOD UREA NITROGEN 40 MG/DL (9-20); CALCIUM 8.8 MG/DL (8.4-10.2); CALCULATED OSMOLALITY 271 MOs/Kg (270-290); CHLORIDE 95 mEq/L (98-107); GLUCOSE 209 mg/dL (70-99); SODIUM LEVEL 132 mEq/L (137-146)
[2016-11-13] MEDS: PANTOPRAZOLE 40 MG TAB PO SCH (06:30)
[2016-11-13] MEDS: HEPARIN 500 ML IV SCH (06:31)
[2016-11-13] MEDS: REGULAR INSULIN 100 UNITS/ML - 3 ML VIAL SQ SCH ×4 (07:00→21:27)
[2016-11-13] MEDS: PREDNISONE 20 MG TAB PO SCH (08:09)
[2016-11-13] MEDS: FENOFIBRATE 145 MG TAB PO SCH (08:09)
[2016-11-13] MEDS: LOSARTAN POTASSIUM 25 MG TAB PO SCH (08:10)
[2016-11-13] MEDS: FUROSEMIDE 40 MG TAB PO SCH (08:10)
[2016-11-13] MEDS: Verapamil 120 MG TAB PO SCH (08:10)
[2016-11-13] MEDS: METOPROLOL TARTRATE 25 MG TAB PO SCH ×2 (08:10→21:26)
[2016-11-13 10:46] LABS: PARTIAL THROMB. TIME 24.8 SEC (22-35); PT-INR 1.1
[2016-11-13] MEDS ORDERED: NALOXONE 0.4 MG/ML AMPULE ONE (10:47)
[2016-11-13] MEDS ORDERED: MIDAZOLAM 2 MG/2 ML VIAL ONE (10:47)
[2016-11-13] MEDS ORDERED: GELATIN 1 SPO SPO TOP ONE (10:47)
[2016-11-13] MEDS ORDERED: FENTANYL 100 MCG/2 ML VIAL ONE (10:47)
[2016-11-13] MEDS ORDERED: FLUMAZENIL 0.1 MG/ML INJ 5 ML VIAL IV ONE (10:47)
[2016-11-13] MEDS ORDERED: LIDOCAINE 1% 5 ML (METHYLPARABEN FREE) ONE (10:48)
[2016-11-13] MEDS: OMEGA-3-ACID ETHYL ESTERS 1000 MG CAP PO SCH ×2 (11:27→17:03)
--- NOTE | 2016-11-13 12:36 | DIRPT ---
CLINICAL DATA: Multiple liver lesions suggesting metastatic disease. Left lung mass. EXAM: CT GUIDED CORE BIOPSY OF LIVER LESION ANESTHESIA/SEDATION: Intravenous Fentanyl and Versed were administered as conscious sedation during continuous monitoring of the patient's level of consciousness and physiological / cardiorespiratory status by the retail wireless sales consultant, with a total moderate sedation time of LESS THAN 30 minutes. PROCEDURE: The procedure risks, benefits, and alternatives were explained to the patient. Questions regarding the procedure were encouraged and answered. The patient understands and consents to the procedure. Select axial scans through the liver were obtained. Lesion was localized and appropriate skin entry site determined and marked. The operative field was prepped with chlorhexidinein a sterile fashion, and a sterile drape was applied covering the operative field. A sterile gown and sterile gloves were used for the procedure. Local anesthesia was provided with 1% Lidocaine. Under CT fluoroscopic guidance, a 17 gauge trocar needle was advanced to the margin of the lesion. Once needle tip position was confirmed, coaxial 18-gauge core biopsy samples were obtained, submitted in formalin to surgical pathology. The guide needle was removed. Postprocedure scans show no hemorrhage or other apparent complication. The patient tolerated the procedure well. COMPLICATIONS: None immediate FINDINGS: Multiple low-attenuation liver lesions spur tunnel in the right lobe were again the evident, relatively stable compared to prior study of 11/09/2016. CT-guided core biopsy samples obtained as above. IMPRESSION: 1. Technically successful CT-guided core biopsy of liver lesion. Electronically Signed By: Jose García M.D. On: 11/13/2016 12:33
--- NOTE | 2016-11-13 17:50 | GENMEDPROG ---
Chief Complaint: Patient in bed responsive follows commands. Tolerated liver biopsy without any complications. Profoundly weak tired and fatigued, dyspneic with minimal physical exertion. Still coughing producing small amount of sputum no hemoptysis. Notes Reviewed: Yes: Events from last night noted and discussed with Clinical Staff Current Medication List: Reviewed Currently: Reports: Cough, Wheezing, OLEARY, SOB, Sputum, Tobacco Use/Hx, Reflux Sx DVT Prophylaxis: Yes - Physical Examination Vital Signs and I&O: Last Vital Signs Temp 97.6 F 11/13/16 14:54 Pulse 95 11/13/16 17:19 Resp 20 11/13/16 14:54 BP 135/64 11/13/16 14:54 Pulse Ox 94 11/13/16 14:54 Oxygen Pulse Oxygen Saturation 94 O2 Device Nasal Cannula Oxygen Flow Rate 3 Fraction of Inspired Oxygen ( 25 FIO2) Intake & Output 11/10/16 11/11/16 11/12/16 11/13/16 23:59 23:59 23:59 23:59 Intake Total 1117 2552 280 1275 Output Total 5682 1153 2395 670 [facility] -1857 60 Patient's weight 101.605 kg 100.272 kg 99.932 kg 94.166 kg General: Alert, Cooperative HEENT: Normal, PERRLA, EOMI, Anicteric Sclera Neck: Non-tender, Limited range of motion Lymphatics: Normal. negative: Adenopathy, Tender Respiratory: Diminished, Rhonchi Cardiovascular: Regular rate, Regular rate and rhythm, Normal S1, Normal S2, Murmurs GI: Normal bowel sounds, Soft, Non tender, No hepatospenomegaly, No masses Extremities/Musculoskeletal: Swelling (Improved.), Edema. negative: Clubbing, Cyanosis Skin: Warm,Dry and Intact, No rashes, No breakdown Neurological: Normal speech, Normal tone Psych/Mental Status: Appropriate, Cooperative Lab/DI/Studies Reviewed: Allergies levofloxacin [From Levaquin] Allergy (Verified 11/06/16 12:01) Nausea/Vomiting 11/10/16 06:05 11/13/16 01:15 Abnormal Lab Results 11/12/16 11/12/16 11/13/16 18:30 19:57 01:15 PT APTT 49.3 H Sodium 132 L Chloride 95 L BUN 40 H Creatinine 1.40 H Estimated GFR (MDRD) 50 L Glucose 209 H POC Capillary Glucose 313 H 11/13/16 11/13/16 11/13/16 01:15 06:09 10:08 PT 11.6 H APTT 73.1 H Sodium Chloride BUN Creatinine Estimated GFR (MDRD) Glucose POC Capillary Glucose 220 H 11/13/16 11/13/16 13:07 16:59 PT APTT Sodium Chloride BUN Creatinine Estimated GFR (MDRD) Glucose POC Capillary Glucose 140 H 254 H - Assessment (1) Acute on chronic respiratory failure Acute J96.20 - ACUTE AND CHR RESP FAILURE, UNSP W HYPOXIA OR HYPERCAPNIA Qualifiers: Respiratory failure complication: hypoxia Qualified Code(s): J96.21 - Acute and chronic respiratory failure with hypoxia Comment/Plan: Continue O2 nebs and pulmonary toilet. Monitor pulmonary status. Wean off oxygen as tolerated, ABG from today showed stable oxygenation level (2) COPD exacerbation Acute J44.1 - CHRONIC OBSTRUCTIVE PULMONARY DISEASE W (ACUTE) EXACERBATION Comment/Plan: Continue nebulized bronchodilators mucolytics and steroids. Wean off steroids gradually (3) Lung mass Acute R91.8 - OTHER NONSPECIFIC ABNORMAL FINDING OF LUNG FIELD Comment/Plan : Status post metastatic liver lesion biopsy. (4) Left leg DVT Acute I82.402 - ACUTE EMBOLISM AND THOMBOS UNSP DEEP VEINS OF L LOW EXTREM Qualifiers: Affected thrombotic vein of extremity: femoral Chronicity: acute Qualified Code(s): I82.412 - Acute embolism and thrombosis of left femoral vein Comment/Plan: Start Xarelto. Risk and benefits of new medications including Xarelto versus Coumadin discussed with the patient and his in details. Continue falls safety precautions monitor for any signs of bleeding (5) CAD (coronary artery disease) Acute I25.10 - ATHSCL HEART DISEASE OF [place] CORONARY ARTERY W/O ANG PCTRS Qualifiers: Coronary Disease-Associated Artery/Lesion type: [place] artery [place] vs. transplanted heart: [place] heart Associated angina: without angina Qualified Code(s): I25.10 - Atherosclerotic heart disease of [place] coronary artery without angina pectoris Comment/Plan: Stable on meds at low activity level (6) Bronchopneumonia Acute J18.0 - BRONCHOPNEUMONIA, UNSPECIFIED ORGANISM Comment/Plan: Continue antibiotics and aggressive pulmonary toilet (7) Dyslipidemia Acute E78.5 - HYPERLIPIDEMIA, UNSPECIFIED Comment/Plan: Continue statin (8) Physical deconditioning Acute R53.81 - OTHER [place] Comment/Plan: Based on PT evaluation inpatient skilled physical therapy strongly recommended to the patient. Patient his in full agreement with that. Will make further arrangements for that Case Care Discussed with: Patient, Consultants Education/Counseling Given To: Patient Education/Counseling Given Regarding: Diagnosis, Treatment, Prognosis, Follow Up Total Time: 45 min . Critical Care: No Code: 77808 (12+)
[2016-11-13] MEDS: RIVAROXABAN 10 MG TAB PO SCH (18:38)
[2016-11-13] MEDS: PRAVASTATIN 40 MG TABLET PO SCH (21:26)
[2016-11-13] MEDS: CEFTRIAXONE 1 GM in D5W 100 ML IV SCH (21:37)
[2016-11-14 04:13] LABS: AUTOMATED BASOPHIL 0.3 % (0-2); AUTOMATED EOSINOPHIL 1.4 % (0-5); AUTOMATED LYMPH 12.1 % (17-44); AUTOMATED MONOCYTE 6.5 % (3-10); AUTOMATED NEUTROPHIL 79.7 % (45-76); MPV 7.9 fL (7.4-10.4)
[2016-11-14 04:17] LABS: BLOOD UREA NITROGEN 46 MG/DL (9-20); CALCIUM 9.2 MG/DL (8.4-10.2); CALCULATED OSMOLALITY 270 MOs/Kg (270-290); CHLORIDE 94 mEq/L (98-107); GLUCOSE 140 mg/dL (70-99); SODIUM LEVEL 133 mEq/L (137-146)
[2016-11-14 04:21] VITALS: BMI 29.0
[2016-11-14] MEDS: PANTOPRAZOLE 40 MG TAB PO SCH (04:25)
[2016-11-14] MEDS: OXYCODONE HCL 5 MG TABLET PO PRN (04:25)
[2016-11-14] MEDS: REGULAR INSULIN 100 UNITS/ML - 3 ML VIAL SQ SCH ×4 (06:07→23:39)
[2016-11-14] MEDS: PREDNISONE 20 MG TAB PO SCH (08:01)
[2016-11-14] MEDS: FENOFIBRATE 145 MG TAB PO SCH (08:01)
[2016-11-14] MEDS: RIVAROXABAN 10 MG TAB PO SCH ×2 (08:02→17:23)
[2016-11-14] MEDS: FUROSEMIDE 40 MG TAB PO SCH (08:03)
[2016-11-14] MEDS: LOSARTAN POTASSIUM 25 MG TAB PO SCH (08:03)
[2016-11-14] MEDS: METOPROLOL TARTRATE 25 MG TAB PO SCH ×2 (08:03→19:48)
[2016-11-14] MEDS: Verapamil 120 MG TAB PO SCH (08:03)
[2016-11-14] MEDS: Albuterol/Ipratropium Neb 3 ML NEB NEB SCH ×3 (08:30→22:43)
[2016-11-14] MEDS: OMEGA-3-ACID ETHYL ESTERS 1000 MG CAP PO SCH ×2 (12:11→17:22)
[2016-11-14] MEDS ORDERED: Medication Special Instructions SCH (16:00)
--- NOTE | 2016-11-14 16:40 | GENMEDPROG ---
Subjective Note: Patient in bed responsive follows commands. Breathing fair still coughing producing small amount of sputum no hemoptysis. Weak tired and very fatigued. Dyspneic with minimal physical exertion. No bleeding due to Xarelto Notes Reviewed: Yes: Events from last night noted and discussed with Clinical Staff Currently: Reports: Cough, Wheezing, OLEARY, SOB, Sputum, Tobacco Use/Hx, Reflux Sx DVT Prophylaxis: Yes - Physical Examination Vital Signs and I&O: Last Vital Signs Temp 97.6 F 11/14/16 15:38 Pulse 84 11/14/16 15:38 Resp 18 11/14/16 15:38 BP 138/61 11/14/16 15:38 Pulse Ox 96 11/14/16 15:38 Oxygen Pulse Oxygen Saturation 96 O2 Device Nasal Cannula Oxygen Flow Rate 2 Fraction of Inspired Oxygen ( 25 FIO2) Intake & Output 11/11/16 11/12/16 11/13/16 11/14/16 23:59 23:59 23:59 23:59 Intake Total 2552 280 1455 684 Output Total 4570 2395 870 1500 Balance 585 -816 Patient's weight 100.272 kg 99.932 kg 94.166 kg 94.574 kg General: Alert, Oriented x3, Cooperative HEENT: Normal, PERRLA, EOMI, Anicteric Sclera Neck: Non-tender, Limited range of motion Lymphatics: Normal. negative: Adenopathy, Tender Respiratory: Diminished, Rhonchi Cardiovascular: Regular rate, Regular rate and rhythm, Normal S1, Normal S2, Murmurs GI: Normal bowel sounds, Soft, Non tender, No hepatospenomegaly, No masses Extremities/Musculoskeletal: Swelling (Improved.), Edema. negative: Clubbing, Cyanosis Skin: Warm,Dry and Intact, No rashes, No breakdown Neurological: Normal speech, Normal tone Psych/Mental Status: Appropriate, Cooperative - Assessment (1) Acute on chronic respiratory failure Acute J96.20 - ACUTE AND CHR RESP FAILURE, UNSP W HYPOXIA OR HYPERCAPNIA Qualifiers: Respiratory failure complication: hypoxia Qualified Code(s): J96.21 - Acute and chronic respiratory failure with hypoxia Comment/Plan: Clinically stable continue O2 nebs and pulmonary toilet. (2) COPD exacerbation Acute J44.1 - CHRONIC OBSTRUCTIVE PULMONARY DISEASE W (ACUTE) EXACERBATION Comment/Plan: Continue nebulized bronchodilators mucolytics and steroids. Wean off steroids gradually (3) Lung mass Acute R91.8 - OTHER NONSPECIFIC ABNORMAL FINDING OF LUNG FIELD Comment/Plan : Status post metastatic liver lesion biopsy. (4) Left leg DVT Acute I82.402 - ACUTE EMBOLISM AND THOMBOS UNSP DEEP VEINS OF L LOW EXTREM Qualifiers: Affected thrombotic vein of extremity: femoral Chronicity: acute Qualified Code(s): I82.412 - Acute embolism and thrombosis of left femoral vein Comment/Plan: Continue Xarelto (5) CAD (coronary artery disease) Acute I25.10 - ATHSCL HEART DISEASE OF [place] CORONARY ARTERY W/O ANG PCTRS Qualifiers: Coronary Disease-Associated Artery/Lesion type: [place] artery [place] vs. transplanted heart: [place] heart Associated angina: without angina Qualified Code(s): I25.10 - Atherosclerotic heart disease of [place] coronary artery without angina pectoris Comment/Plan: Stable on meds at low activity level (6) Bronchopneumonia Acute J18.0 - BRONCHOPNEUMONIA, UNSPECIFIED ORGANISM Comment/Plan: Continue antibiotics and aggressive pulmonary toilet. Will finish 10 days course of antibiotic tomorrow (7) Dyslipidemia Acute E78.5 - HYPERLIPIDEMIA, UNSPECIFIED Comment/Plan: Continue statin (8) Physical deconditioning Acute R53.81 - OTHER [place] Comment/Plan: Based on PT evaluation inpatient skilled physical therapy strongly recommended to the patient. Patient his in full agreement with that. Will make further arrangements for that Case Care Discussed with: Patient, Consultants, Family, Nursing Staff Education/Counseling Given To: Patient Education/Counseling Given Regarding: Diagnosis, Treatment, Prognosis, Follow Up Total Time: 45 min . Critical Care: No Code: 69459 (12+)
[2016-11-14] MEDS: PRAVASTATIN 40 MG TABLET PO SCH (19:48)
[2016-11-14] MEDS: CEFTRIAXONE 1 GM in D5W 100 ML IV SCH (23:41)
[2016-11-15 03:59] LABS: BLOOD UREA NITROGEN 53 MG/DL (9-20); CALCIUM 9.1 MG/DL (8.4-10.2); CALCULATED OSMOLALITY 270 MOs/Kg (270-290); CHLORIDE 94 mEq/L (98-107); GLUCOSE 95 mg/dL (70-99); SODIUM LEVEL 133 mEq/L (137-146)
[2016-11-15] MEDS: PANTOPRAZOLE 40 MG TAB PO SCH (05:09)
[2016-11-15] MEDS: REGULAR INSULIN 100 UNITS/ML - 3 ML VIAL SQ SCH (06:05)
[2016-11-15] MEDS ORDERED: PREDNISONE 20 MG TAB PO SCH (08:00)
[2016-11-15] MEDS: Albuterol/Ipratropium Neb 3 ML NEB NEB SCH (08:19)
[2016-11-15] MEDS: FENOFIBRATE 145 MG TAB PO SCH (10:09)
[2016-11-15] MEDS: RIVAROXABAN 10 MG TAB PO SCH (10:10)
[2016-11-15] MEDS: Verapamil 120 MG TAB PO SCH (10:10)
[2016-11-15] MEDS: METOPROLOL TARTRATE 25 MG TAB PO SCH (10:10)
--- NOTE | 2016-11-15 11:10 | PCM.DCS92 ---
- Final/Secondary Discharge Diagnosis (1) Acute kidney injury superimposed on chronic kidney disease Acute N17.9 - ACUTE KIDNEY FAILURE, UNSPECIFIED; N18.9 - CHRONIC KIDNEY DISEASE, UNSPECIFIED Present on Admission: Yes Comment: Baseline Cr 1.6. Admission Cr 2. GFR is 33. On day of discharge his creatinine has climbed to 2.2 and will temporarily hold his Lasix and losartan until his creatinine drops back down to 1.6. (2) Acute on chronic respiratory failure Acute J96.20 - ACUTE AND CHR RESP FAILURE, UNSP W HYPOXIA OR HYPERCAPNIA Present on Admission: Yes hypoxia J96.21 - Acute and chronic respiratory failure with hypoxia Comment: Clinically stable continue O2 nebs and pulmonary toilet. (3) Anemia Acute D64.9 - ANEMIA, UNSPECIFIED Present on Admission: Yes Comment: Admission H/H prior to start of heparin IV gtt was 10.2/31.9. Etiology unknown. MCV 81. Plan: Monitor CBC. Check anemia labs. (4) Bronchopneumonia Acute J18.0 - BRONCHOPNEUMONIA, UNSPECIFIED ORGANISM Present on Admission: Yes Comment: Continue antibiotics and aggressive pulmonary toilet. (5) CAD (coronary artery disease) Acute I25.10 - ATHSCL HEART DISEASE OF [place] CORONARY ARTERY W/O ANG PCTRS Present on Admission: Yes [place] artery [place] heart without angina I25.10 - Atherosclerotic heart disease of [place] coronary artery without angina pectoris Comment: Stable on meds at low activity level (6) COPD exacerbation Acute J44.1 - CHRONIC OBSTRUCTIVE PULMONARY DISEASE W (ACUTE) EXACERBATION Present on Admission: Yes Comment: Continue nebulized bronchodilators mucolytics and steroids. Wean off steroids gradually (7) Left leg DVT Acute I82.402 - ACUTE EMBOLISM AND THOMBOS UNSP DEEP VEINS OF L LOW EXTREM Present on Admission: Yes femoral acute I82.412 - Acute embolism and thrombosis of left femoral vein Comment: Continue Xarelto (8) Neoplasm of uncertain behavior of lung Acute D38.1 - NEOPLASM OF UNCERTAIN BEHAVIOR OF [place], BRONCHUS AND LUNG Present on Admission: Yes Comment: Large mass in left lung measuring 8.6 cm, bilobed, most consistent with bronchogenic malignancy per CT report. Discussed case in detail with Dr. Chadwick, who also thinks the mass is most likely lung cancer. Liver partially imaged may have mets. Plan: Consult Dr. Chadwick. Will need scans of CT abdomen/pelvis for staging and bone scan. Could consider biopsy of lung or liver, depending on best approach. but for now , he needs to remain on a heparin IV gtt for anticoagulation. Family does not want interventional radiology to biopsy; family wants Dr. Florentino to biopsy. Niece is an OR tech at this hospital, and would like Dr. Florentino to evaluate the patient; she also inquired about whether he would benefit from an IVC filter. (9) Tobacco abuse Acute Z72.0 - TOBACCO USE Present on Admission: Yes Comment: Severe. Counseled to quit. (10) Type 2 diabetes mellitus with hyperglycemia Acute E11.65 - TYPE 2 DIABETES MELLITUS WITH HYPERGLYCEMIA Present on Admission: Yes without local company intermodal truck driver use E11.65 - Type 2 diabetes mellitus with hyperglycemia Comment: Plan: Hold oral diabetes medications. Check fingerstick blood sugars q ac and hs. Sliding scale insulin. Ordered A1c and urine microalbumin. (11) Pulmonary embolism Suspected I26.99 - OTHER PULMONARY EMBOLISM WITHOUT ACUTE COR PULMONALE Present on Admission: Yes other acute without acute cor pulmonale I26.99 - Other pulmonary embolism without acute cor pulmonale Comment: Patient with very large DVT in leg, and suspect he may also have a PE. Cannot obtain CTA chest because of his Creatinine level. May consider V/Q but with the abnormalities found on CT scan, unclear whether the V/Q would give reliable information. In any case, patient has been started on IV heparin gtt, which would also cover any PE. Plan: Continue IV heparin gtt. Discharge Disposition: Group Home Facility Discharge Condition: Improved Cognitive Discharge Status: Unimpaired Fuctional Discharge Status: Walker Assistance Physician Follow up/Referrals: Eugene Apodaca MD [Primary Care Provider] - Hospital to call w/ appt. Patel Rico MD [Staff Physician] - 1-2 Days Home Medications / New Prescriptions: New Alprazolam [Xanax] 1 mg PO Q6H PRN #30 tablet PRN Reason: Anxiety Or Agitation Losartan Potassium [Cozaar] 25 mg PO DAILY #30 tablet Metoprolol Tartrate [Lopressor] 25 mg PO BID #60 tablet Oxycodone Immediate Release [Oxycodone Immediate Release (OxyIR)] 5 mg PO Q4H PRN #30 tablet PRN Reason: Moderate To Severe Pain Prednisone [Deltasone, Orasone] 30 mg PO DAILYWM #14 tablet Probiotic Blend [Jenna Q] 1 each PO BID #30 tab Rivaroxaban [Xarelto] 15 mg PO BIDWM #10 tablet Rivaroxaban [Xarelto] 20 mg PO DAILY(PIEDAD) #30 tablet Continue Super Beta Prostate 2 tab PO .QPM Insulin Regular, Human [Humulin R U-500] 8 unit SQ .TID SLIDING SCALE Aspirin (Enteric Coated) [Halfprin] 81 mg PO DAILY [place]-3/Dha/Epa/Fish Oil [Fish Oil 1,400 mg Softgel] 1 cap PO BID Pravastatin [Pravachol] 80 mg PO QHS Furosemide [Lasix] 20 mg PO DAILY Liraglutide [Victoza 18 mg/3 ml Pen] 1.8 mg SQ .QPM Fenofibrate 160 mg PO DAILY Albuterol Sulfate [Proair Hfa] 1 - 2 puff INH Q4-6H PRN PRN Reason: Shortness Of Breath Promethazine [Phenergan] 25 mg PO Q8H PRN PRN Reason: Nausea/Vomiting Amitriptyline HCl 25 mg PO QHS PRN PRN Reason: NEUROPATHY Insulin Regular, Human [Humulin R U-500] 8 unit SQ 2000 PRN PRN Reason: BS>300 Discontinued Losartan Potassium 50 mg PO DAILY Clopidogrel Bisulfate [Plavix] 75 mg PO DAILY Verapamil HCl [Verapamil ER] 120 mg PO DAILY Discharge Home Medication List Albuterol Sulfate [Proair Hfa] 1 - 2 puff INH Q4-6H PRN 11/06/16 [History Confirmed 11/06/16 Last Taken Unknown] Amitriptyline HCl 25 mg PO QHS PRN 11/06/16 [History Confirmed 11/06/16 Last Taken 11/05/16] Aspirin (Enteric Coated) [Halfprin] 81 mg PO DAILY 11/06/16 [History Confirmed 11/06/16 Last Taken 11/06/16] Fenofibrate 160 mg PO DAILY 11/06/16 [History Confirmed 11/15/16 Last Taken 09/19 09:00] Furosemide [Lasix] 20 mg PO DAILY 11/06/16 [History Confirmed 11/06/16 Last Taken 11/06/16] Insulin Regular, Human [Humulin R U-500] 8 unit SQ .TID SLIDING SCALE 11/06/16 [ History Confirmed 11/15/16 Last Taken 11/14/16 10 UNITS] Insulin Regular, Human [Humulin R U-500] 8 unit SQ 2000 PRN 11/06/16 [History Confirmed 11/06/16 Last Taken Unknown] Liraglutide [Victoza 18 mg/3 ml Pen] 1.8 mg SQ .QPM 11/06/16 [History Confirmed 11/06/16 Last Taken 11/04/16] [place]-3/Dha/Epa/Fish Oil [Fish Oil 1,400 mg Softgel] 1 cap PO BID 11/06/16 [ History Confirmed 11/15/16 Last Taken 11/14/16] Pravastatin [Pravachol] 80 mg PO QHS 11/06/16 [History Confirmed 11/15/16 Last Taken 11/14/16] Promethazine [Phenergan] 25 mg PO Q8H PRN 11/06/16 [History Confirmed 11/06/16 Last Taken Unknown] Super Beta Prostate 2 tab PO .QPM 11/06/16 [History Confirmed 11/06/16 Last Taken 11/05/16] Alprazolam [Xanax] 1 mg PO Q6H PRN #30 tablet 11/15/16 [Rx Last Taken Unknown] Losartan Potassium [Cozaar] 25 mg PO DAILY #30 tablet 11/15/16 [Rx Last Taken Unknown] Metoprolol Tartrate [Lopressor] 25 mg PO BID #60 tablet 11/15/16 [Rx Last Taken Unknown] Oxycodone Immediate Release [Oxycodone Immediate Release (OxyIR)] 5 mg PO Q4H PRN #30 tablet 11/15/16 [Rx Last Taken Unknown] Prednisone [Deltasone, Orasone] 30 mg PO DAILYWM #14 tablet 11/15/16 [Rx Last Taken Unknown] Probiotic Blend [Jenna Q] 1 each PO BID #30 tab 11/15/16 [Rx Last Taken Unknown] Rivaroxaban [Xarelto] 15 mg PO BIDWM #10 tablet 11/15/16 [Rx Last Taken Unknown ] take this for the next 5 days then switch to 20 mg daily Start this after taking the twice daily Xarelto. Rivaroxaban [Xarelto] 20 mg PO DAILY(PIEDAD) #30 tablet 11/15/16 [Rx Last Taken Unknown] 11/14/16 03:35 11/15/16 03:35 Laboratory Results - last 24 hr 11/14/16 11/14/16 11/15/16 15:36 20:27 03:35 Sodium 133 L Potassium 4.1 Chloride 94 L Carbon Dioxide 32 Anion Gap 11 BUN 53 H Creatinine 2.20 H Estimated GFR (MDRD) 30 L Glucose 95 POC Capillary Glucose 304 H 376 H Calculated Osmolality 270 Calcium 9.1 11/15/16 11/15/16 05:15 11:26 Sodium Potassium Chloride Carbon Dioxide Anion Gap BUN Creatinine Estimated GFR (MDRD) Glucose POC Capillary Glucose 104 H 204 H Calculated Osmolality Calcium O2 Device: Nasal Cannula Diet at Discharge: As Tolerated Activity: As Tolerated Discontinue use of:: Alcohol, All Types of Tobacco - DC Summary Notes HPI/Notes: The patient is a 71 yo man, smoker, with COPD (uses only ProAir qhs) who presents with leg pain and shortness of breath. His foot left started swelling about 2.5 weeks ago and eventually his lower leg then his thigh started swelling. The thigh swelling started about 2 days ago. The shortness of breath - - started 10 years ago, and has been somewhat worse lately. Onset: 2.5 weeks ago. Duration: intermittent. Location: left foot. Radiation: left lower leg then left thigh Character: swelling, pain. Alleviated by: Nothing. Exacerbated by: walking. Associated Symptoms: Shortness of breath. Chronic cough and wheezing. No chest pain or palpitations. Weight loss: approximately 20 lbs over the last year, but more than 40 lbs within the last 4 years; unintentional. Treatments: none at home except usual medications. ProAir takes only 1 time per day. Other History: CON: Uses CPAP at home but it does not fit well because he lost weight. Hospital Course Note:: Discharge summary on patient named RAFA JACKSON admitted to [facility] on 11/06/16 by Bear Del Castillo MD. Date of discharge is to 11/15/2016. He is admitted with left lung mass COPD exacerbation renal failure multiple lesions in the liver suggestive of metastatic disease and respiratory failure with a recent history of continued tobacco abuse. He was advised to quit smoking but at this point time considering what he has in his lungs and liver comfort measures will be most important. Biopsy of the liver mass on 2016 is pending at time dictation but concerned that it may be metastatic lung cancer. Oncology was consulted Dr. Chadwick was concerned that his performance status may be too low to tolerate intensive chemotherapy for his likely stage IV lung cancer. He was treated with IV antibiotics including Rocephin for his COPD exacerbation including inhalation therapy and improved during hospitalization but was noted to have renal insufficiency with creatinine rising above 2 and holding his losartan/lasix for now. Reinstitution may be attempted once his renal function returns to its previous level. He was in need of physical therapy at [facility] and will be receiving this under the care of Dr. Rico. CC: Dr. Jacky Apodaca Total Time: 41 min Code: [id number] (>30min.) - Physical Exam Vital Signs: Last Vital Signs Temp 97.8 F 11/15/16 08:00 Pulse 103 11/15/16 08:00 Resp 20 11/15/16 08:00 BP 126/51 L 11/15/16 08:00 Pulse Ox 94 11/15/16 08:23 Oxygen Pulse Oxygen Saturation 94 O2 Device Nasal Cannula Oxygen Flow Rate 2 Fraction of Inspired Oxygen ( 25 FIO2) Constitutional: No apparent distress, Alert Oriented to: Time, Person, Place - HEENT Head: Normal. negative: Abrasion, Swelling Eye: Normal. negative: Edema, Scleral Icterus Oropharynx: Normal. negative: Exudate, Red ENT EAC: Normal. negative: Blood TMJ: Normal. negative: Crepitance, Tender Nose: No Symptoms Reported. negative: Abrasion, Bleeding - Respiratory/Cardiovascular Respiratory: Diminished, Rhonchi Cardiovascular: Irregular - GI Auscultation: Normal. negative: Bruit Palpation: Normal. negative: Enlarged liver, Enlarged spleen Tenderness: Non tender Perez's Sign: Negative Rectal Exam: Deferred - Musculoskeletal Back: Normal. negative: Abrasion, Ecchymosis Extremities: Edema (lle) - Integumentary Skin: Cool (lle) Lymphatics: Normal. negative: Adenopathy, Tender - Neurologic Memory Impaired: Normal Motor Function: Normal (Motor 5/5 throughout.Normal tone, Pulses 2+ No cyanosis or edema, FROM) Cranial Nerve: Normal (CN II-XII intact sensation, strength 5/5) Cerebellar: Normal Mood Description: Normal Thought: Coherent Perception: Normal
[2016-11-15 11:17] VITALS: BP 124/56; PULSE 85; TEMP 98.1
== END 2016-11-15 13:40 | DRG 299 ==
LOC: ED 11:56 → PCU 18:40
PROVIDERS: ADMIT Internal Medicine; ATTEND Internal Medicine
PROC: B246ZZZ Ultrasonography of Right and Left Heart (ICD-10-PCS; 2016-11-06)
PROC: B54CZZZ Ultrasonography of Left Lower Extremity Veins (ICD-10-PCS; 2016-11-06)
PROC: 4A033R1 Measurement of Arterial Saturation, Peripheral, Percutaneous Approach (ICD-10-PCS; 2016-11-10)
PROC: 0FB13ZX Excision of Right Lobe Liver, Percutaneous Approach, Diagnostic (ICD-10-PCS; principal; 2016-11-13)
DX: I82.412 Acute embolism and thrombosis of left femoral vein (principal); J18.0 Bronchopneumonia, unspecified organism; J96.21 Acute and chronic respiratory failure with hypoxia; I26.99 Other pulmonary embolism without acute cor pulmonale; N17.9 Acute kidney failure, unspecified; C78.7 Secondary malignant neoplasm of liver and intrahepatic bile duct; C79.89 Secondary malignant neoplasm of other specified sites; C34.92 Malignant neoplasm of unspecified part of left bronchus or lung; D64.9 Anemia, unspecified; J44.1 Chronic obstructive pulmonary disease with (acute) exacerbation; I82.432 Acute embolism and thrombosis of left popliteal vein; I82.4Z2 Acute embolism and thrombosis of unspecified deep veins of left distal lower extremity; N18.3 Chronic kidney disease, stage 3 (moderate); I25.10 Atherosclerotic heart disease of native coronary artery without angina pectoris; E11.65 Type 2 diabetes mellitus with hyperglycemia; M19.90 Unspecified osteoarthritis, unspecified site; G47.33 Obstructive sleep apnea (adult) (pediatric); E78.5 Hyperlipidemia, unspecified; I12.9 Hypertensive chronic kidney disease with stage 1 through stage 4 chronic kidney disease, or unspecified chronic kidney disease; Z95.2 Presence of prosthetic heart valve; Z72.0 Tobacco use; Z88.1 Allergy status to other antibiotic agents; Z79.4 Long term (current) use of insulin; Z79.82 Long term (current) use of aspirin; Z79.02 Long term (current) use of antithrombotics/antiplatelets
CPT/HCPCS: 36415; 36600; 47000; 70553; 71010; 71250; 71275; 74174; 77012; 78306; 80048; 80053; 81001; 82043; 82272; 82378; 82607; 82728; 82746; 82803; 82962; 83036; 83520; 83540; 83550; 83735; 83880; 84443; 84484; 85025; 85027; 85045; 85610; 85730; 87040; 87070; 87086; 87205; 93005; 93306; 94640; 94660; 96365; 96366; 96372; 96375; 97162; 98960; 99221; 99231; 99232; 99283; 99406; A4216; A9503; A9577; A9698; G0237; J0456; J0696; J1644; J1940; J2250; J2270; J2310; J2405; J3010; J3490; J7060; J7070; J7620